=== PATIENT | male | born 1950 | race Caucasian/White ===

== ENCOUNTER 2017-07-06 11:29 | Emergency (ER) | payer OTHER ==
[2017-07-06] MEDS ORDERED: Tetan/Diph/Pertus SYR(Tdap)* 0.5 ML SYR(BOOSTRIX) use SYR IM ONE (12:14)
[2017-07-06] MEDS ORDERED: Lidocaine 2% 10 ML* VIAL INJ ONE (13:54)
[2017-07-06] MEDS ORDERED: Lidocaine 2% PF * 5 ML VIAL ONE (13:54)
--- NOTE | 2017-07-06 15:04 | ED ---
Lower Extremity - HPI Summary HPI Summary: Pt here w/ lac to Rt thigh while using a box sorter earlier today. Bleeding alot. BIBA. He has a dressing applied. Denies numbness, tingling, weakness into LE and no weakness, fatigue, dizziness, SOB, chest pain. Moving leg well - area of injury is sore focally but does not want pain meds at this time. Unsure of last tetanus vaccine. - History of Current Complaint Chief Complaint: EDLacSutureRecheck Stated Complaint: LEG LACERATION Time Seen by Provider: 07/06/17 11:44 Hx Obtained From: Patient Pain Intensity: 3 - Allergies/Home Medications Allergies/Adverse Reactions: Allergies Allergy/AdvReac Type Severity Reaction Status Date / Time Penicillins Allergy Severe Rash Verified 07/02/17 11:11 Levofloxacin [From Levaquin] Allergy tendonitis, Verified 07/02/17 11:11 severe muscle aches PMH/Surg Hx/FS Hx/Imm Hx Previously Healthy: Yes Endocrine/Hematology History: Denies: Hx Anticoagulant Therapy, Hx Blood Disorders, Hx Anemia, Hx Coagulopothy, Autoimmune Disease Cardiovascular History: Reports: Hx Hypertension Denies: Hx Pacemaker/ICD Respiratory History: Reports: Hx Chronic Obstructive Pulmonary Disease (COPD), Hx Sleep Apnea GI History: Reports: Hx Hiatal Hernia, Other GI Disorders - being worked up Denies: Hx Gastrointestinal Bleed, Hx Ulcer History: Denies: Hx Acute Renal Failure, Hx Chronic Renal Failure Musculoskeletal History: Reports: Hx Arthritis - rheumatoid arthritis, Hx Back Problems - takes morphine daily for chronic pain Sensory History: Denies: Hx Hearing Aid Neurological History: Reports: Other Neuro Impairments/Disorders - PAIN CLINIC INJECTIONS Psychiatric History: Reports: Hx Anxiety, Hx Depression, Hx Panic Disorder, Hx Substance Abuse - 30 years ago - Surgical History Surgery Procedure, Year, and Place: HIATAL HERNIA. RT FOOT SURGERY. FACIAL SURGERY. NOSE SURGERY. circumcision 2011, [facility] [place] - Immunization History Date of Tetanus Vaccine: unknown Date of Influenza Vaccine: UTD Immunizations Up to Date: Unable to Obtain/Confirm Infectious Disease History: No Infectious Disease History: Reports: Hx Hepatitis - Hep C Denies: Traveled Outside the [place] in Last 30 Days - Family History Known Family History: Positive: None - Social History Occupation: Retired Lives: With Family Alcohol Use: None Hx Substance Use: No Substance Use Type: Reports: None Substance Use Comment - Amount & Last Used: ms contin, morphine ir rx'd Hx Tobacco Use: Yes - not currently Smoking Status (MU): Former Smoker Type: Cigarettes Have You Smoked in the Last Year: No Review of Systems Constitutional: Negative Eyes: Negative ENT: Negative Cardiovascular: Negative Respiratory: Negative Gastrointestinal: Negative Positive: no symptoms reported Musculoskeletal: Negative Skin: Other - lac Neurological: Negative Psychological: Normal All Other Systems Reviewed And Are Negative: Yes Physical Exam Triage Information Reviewed: Yes Vital Signs On Initial Exam: Initial Vitals Temp Pulse Resp BP Pulse Ox 98.8 F 72 18 156/81 97 07/06/17 11:42 07/06/17 11:42 07/06/17 11:42 07/06/17 11:42 07/06/17 11:42 Vital Signs Reviewed: Yes Appearance: Positive: Well-Appearing, No Pain Distress, Well-Nourished Skin: Positive: Warm - eliptical lac over Rt anterior thigh - oozing blood w/o pressure at times - better after pressure dressing - clots are present within wound, subcutaneous tissue observed - no muscle injury observed - no vessels, nerves observed Head/Face: Positive: Normal Head/Face Inspection Eyes: Positive: EOMI ENT: Positive: Hearing grossly normal Respiratory/Lung Sounds: Positive: Breath Sounds Present Cardiovascular: Positive: Pulses are Symmetrical in both Upper and Lower Extremities. Negative: Leg Edema Left, Leg Edema Right Musculoskeletal: Positive: Normal, Strength/ROM Intact Neurological: Positive: Normal, Sensory/Motor Intact, Alert, Oriented to Person Place, Time, CN Intact II-III Psychiatric: Positive: Normal - [place] Coma Scale Coma Scale Total: 15 Procedures - Laceration/Wound Repair 1 Location: lower extremity - Rt thigh Description: Irregular - eliptical w/ tissue tension presenting as a nike swoop Anesthesia: Local, 2.0%, Lido Length, Depth and Shape: 4.25cm in length x 1.75 cm deep Betadine Prep?: Yes Irrigated w/ Saline (ccs): 250 Laceration/Wound Explored: clean Closure: Single Layer Suture Type: Nylon - 4-0 Number of Sutures: 11 - 3 horizontal mattress; 8 simple interrupted Layer Closure?: No - no muscle tissue to approximate, only subcut which doesn't hold suture Sterile Dressing Applied?: Yes - triple anbx + sterile gauze + coban - pt tolerated well Diagnostics - Vital Signs Vital Signs Temp Pulse Resp BP Pulse Ox 07/06/17 11:42 98.8 F 72 18 156/81 97 - Laboratory Lab Statement: Any lab studies that have been ordered have been reviewed, and results considered in the medical decision making process. Lower Extremity Course/Dx - Diagnoses Provider Diagnoses: Laceration of right thigh Discharge - Discharge Plan Condition: Stable Disposition: HOME Prescriptions: Ibuprofen TAB* [Motrin TAB* 600 MG] 600 mg PO Q6H PRN #20 tab PRN Reason: Pain Patient Education Materials: Care For Your Stitches (ED), Crutch Instructions ( ED), Laceration (ED) Referrals: Jaiden Branch MD [Primary Care Provider] - Additional Instructions: Keep dressing clean, dry and in place for 48 hours. After this time, you may remove dressing and gently wash daily with soap and water - rinse well and pat dry with clean cloth - reapply triple antibiotic ointment and gauze padding/ dressing with coban (stretchy, adherent, beige wrap). Once you are out of coban , you may start applying an SARAH wrap for your outer dressing but continue to place clean, fresh gauze with each dressing change. Do not bend, squat, kneel, walk vigorously, etc as you do not want to disrupt your sutures while tissue is healing. You have been provided with crutches to reduce muscle contraction with weight bearing on this leg. Use until wound heals. Follow-up with PCP in 10-14 days for wound check and suture removal. You may follow-up with PCP sooner if you have concerns about healing, infection, etc. In the meantime, rest, ice, elevate. You may take ibuprofen with food for pain (medication sent for pharmacy for you). You may also return to the ED if you develop swelling, redness, purulent drainage, streaking, fever or chills OR if the wound starts bleeding despite elevation and compression for 20 minutes, and icing.
[2017-07-06 15:10] VITALS: BP 146/78
== END 2017-07-06 15:09 | disposition home or self-care (01) ==
LOC: ED 11:29
DX: S71.111A Laceration without foreign body, right thigh, initial encounter (principal); W26.8XXA Contact with other sharp object(s), not elsewhere classified, initial encounter; Y92.9 Unspecified place or not applicable; J44.9 Chronic obstructive pulmonary disease, unspecified; I10 Essential (primary) hypertension; M06.9 Rheumatoid arthritis, unspecified; G47.30 Sleep apnea, unspecified; G89.29 Other chronic pain; Z87.891 Personal history of nicotine dependence
CPT/HCPCS: 12002; 90471; 90715; 99282

== ENCOUNTER 2018-03-20 09:44 | Emergency (ER) | payer MEDICARE, OTHER ==
[2018-03-20 10:18] VITALS: BP 158/86
[2018-03-20] MEDS ORDERED: Lidocaine 1%* 5 ML VIAL INJ ONE (11:52)
--- NOTE | 2018-03-20 12:12 | UC ---
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 - History Of Current Complaint Chief Complaint: UCLaceration Stated Complaint: FACIAL LACERATION Time Seen by Provider: 03/20/18 11:36 Hx Obtained From: Patient Laceration Location: Cheek - right Mechanism Of Injury: Blunt Trauma Onset/Duration: Sudden Onset Pain Intensity: 5 Pain Scale Used: 0-10 Numeric Aggravating Factors: Nothing - Allergies/Home Medications Allergies/Adverse Reactions: Allergies Allergy/AdvReac Type Severity Reaction Status Date / Time Penicillins Allergy Severe Rash Verified 03/20/18 10:18 levofloxacin [From Levaquin] AdvReac See Comment Verified 03/20/18 10:18 Home Medications: Home Medications Docusate CAP* [Colace Cap*] 100 mg PO DAILY 03/20/18 [History Confirmed 03/20/18 ] PMH/Surg Hx/FS Hx/Imm Hx Previously Healthy: No - chronic pain Psychological History: Depression, Post Traumatic Stress Disorder Other History Of: Negative For: Anticoagulant Therapy - Surgical History Surgical History: Yes Surgery Procedure, Year, and Place: HIATAL HERNIA. RT FOOT SURGERY. FACIAL SURGERY. NOSE SURGERY. circumcision 2011, [facility] [place] - Family History Known Family History: Positive: None - Social History Occupation: Disabled Lives: With Family Alcohol Use: Daily Substance Use Type: None Substance Use Comment - Amount & Last Used: ms contin, morphine ir rx'd Smoking Status (MU): Former Smoker Type: Cigarettes Have You Smoked in the Last Year: No When Did the Patient Quit Smoking/Using Tobacco: 1991 Review of Systems Constitutional: Negative Skin: Negative, Other - 6 cm laceration right cheek---does not include ear and is not throgh and through Eyes: Negative ENT: Negative Respiratory: Negative Cardiovascular: Negative Gastrointestinal: Negative Genitourinary: Negative Motor: Negative Neurovascular: Negative Musculoskeletal: Negative Neurological: Negative Psychological: Negative Is Patient Immunocompromised?: No All Other Systems Reviewed And Are Negative: Yes Physical Exam Triage Information Reviewed: Yes Appearance: Well-Appearing, No Pain Distress, Well-Nourished Vital Signs: Initial Vital Signs Temp 97.1 F 03/20/18 10:13 Pulse 89 03/20/18 10:13 Resp 18 03/20/18 10:13 BP 158/86 03/20/18 10:13 Pulse Ox 96 03/20/18 10:13 Vital Signs Reviewed: Yes Eye Exam: Normal Eyes: Positive: Conjunctiva Clear ENT Exam: Normal ENT: Positive: Normal ENT inspection, Hearing grossly normal, Pharynx normal. Negative: Trismus, Muffled voice, Hoarse voice Dental Exam: Normal Neck exam: Normal Neck: Positive: Supple Respiratory Exam: Normal Respiratory: Positive: Chest non-tender, No respiratory distress, No accessory muscle use Cardiovascular Exam: Normal Cardiovascular: Positive: RRR, Pulses Normal, Brisk Capillary Refill Musculoskeletal Exam: Normal Musculoskeletal: Positive: Strength Intact, ROM Intact, No Edema Neurological Exam: Normal Neurological: Positive: Alert, Muscle Tone Normal Psychological Exam: Normal Psychological: Positive: Normal Response To Family Skin Exam: Normal Skin: Positive: Other - 6 cm laceration right cheek does not include anuy portion of the ear, is not through and through Laceration Repair - Laceration Repair 1 Description: Linear Laceration Size After Repair: Length (cm) - 6, Width (mm) - 2, Depth (mm) - 3 Modified For Repair: No Type Injection: Local Anesthesia Used: 1.0% Lido Cleansing Completed Via Routine Prep: Yes Irrigation With Pressure Irrigation Device: Yes Closure Method: Single Layer Suture Of: Skin Suture Type: Nylon - 7 number 6.0 suture Laceration Course/Dx - Course/Dx Course Of Treatment: patient tolerated well-wound well approximated, reviewed d/ c instructions and wound care with patient - Differential Dx - Laceration/Wound Provider Diagnoses: 6 cm sutured laceration repair right cheek Discharge - Sign-Out/Discharge Documenting (check all that apply): Patient Departure - Discharge Plan Condition: Stable Disposition: HOME Patient Education Materials: Hypertension (ED), Facial Laceration (ED) Referrals: Jaiden Branch MD [Primary Care Provider] - 5 Days - Billing Disposition and Condition Condition: STABLE Disposition: Home
== END 2018-03-20 12:37 | disposition home or self-care (01) ==
LOC: UCEAST 09:44
DX: S01.411A Laceration without foreign body of right cheek and temporomandibular area, initial encounter (principal); W22.8XXA Striking against or struck by other objects, initial encounter; Y93.9 Activity, unspecified; Y92.9 Unspecified place or not applicable; Z88.1 Allergy status to other antibiotic agents; Z88.0 Allergy status to penicillin; Z87.891 Personal history of nicotine dependence
CPT/HCPCS: 12014; 99211; G0463

== ENCOUNTER 2018-10-18 20:20 | Emergency (ER) | payer OTHER ==
[2018-10-18] MEDS ORDERED: Ondansetron ODT TAB* 4 MG PO ONE (20:21)
[2018-10-18 20:30] VITALS: BP 202/93
[2018-10-18] MEDS ORDERED: NS 0.9% 1000 ML** 1,000 ML IV SCH (21:00)
--- NOTE | 2018-10-18 21:01 | UC ---
Abdominal Pain Male HPI - HPI Summary HPI Summary: pT PRESENTS WITH C/O severe abdominal pain, nausea, and concern for allergic reaction to medication given to him at [facility] office visit yesterday given via injection for his sinusitis. Pt unsure of name of medication and stated that he got an injection in his "ass". Pt was found on hands and knees wretching and c/ o abdominal pain and nausea but unable to vomit. pt denies any tongue or throat swelling, no difficulty breathing. Pt smells of alcohol. Pt states that abdominal pain, nausea began at noon yesterday. - History of Current Complaint Chief Complaint: UCAbdominalPain Stated Complaint: ALLERGIC REACTION Hx Obtained From: Patient Onset/Duration: Sudden Onset Timing: Constant Severity Initially: Severe Severity Currently: Severe Pain Intensity: 10 Location: Diffuse Radiates: No Character: Aching, Burning, Colicy, Dull, Sharp Aggravating Factor(s): Food, Movement, Deep Breaths Alleviating Factor(s): Nothing Associated Signs And Symptoms: Positive: Decreased Appetite, Nausea - Risk Factors Testicular Torsion: Negative Cardiac Risk Factors: Negative - Allergies/Home Medications Allergies/Adverse Reactions: Allergies Allergy/AdvReac Type Severity Reaction Status Date / Time Penicillins Allergy Severe Rash Verified 10/18/18 20:21 levofloxacin [From Levaquin] AdvReac See Comment Verified 10/18/18 20:21 Home Medications: Home Medications Cetirizine HCl [All Day Allergy] 10 mg PO DAILY 10/18/18 [History Confirmed ] Cholecalciferol (Vitamin D3) [Vitamin D3] 1,000 unit PO DAILY 10/18/18 [History Confirmed 10/18/18] Cyanocobalamin INJ * [Vitamin B12 INJ *] 1,000 mcg IM ONCE 10/18/18 [History Confirmed 10/18/18] Dextran 70/Hypromellose [Natures Tears 0.1-0.3 %] 1 ruby OP QID 10/18/18 [ History Confirmed 10/18/18] Lactulose 15 ml PO BID PRN 10/18/18 [History Confirmed 10/18/18] Lisinopril TAB* [Prinivil TAB*] 40 mg PO DAILY 10/18/18 [History Confirmed 10/18] Mirtazapine TAB* [Remeron TAB*] 15 mg PO BEDTIME 10/18/18 [History Confirmed ] PMH/Surg Hx/FS Hx/Imm Hx Previously Healthy: No Cardiovascular History: Cardiac Disease, Hypertension Other History Of: Negative For: Anticoagulant Therapy - Surgical History Surgical History: Yes Surgery Procedure, Year, and Place: HIATAL HERNIA. RT FOOT SURGERY. FACIAL SURGERY. NOSE SURGERY. circumcision [facility] [place] - Family History Known Family History: Positive: Cardiac Disease - Social History Occupation: Retired Lives: With Family Alcohol Use: None Substance Use Type: None Substance Use Comment - Amount & Last Used: ms contin, morphine ir rx'd Smoking Status (MU): Former Smoker Type: Cigarettes Have You Smoked in the Last Year: No When Did the Patient Quit Smoking/Using Tobacco: 1991 Review of Systems All Other Systems Reviewed And Are Negative: Yes Constitutional: Positive: Chills Skin: Positive: Negative Eyes: Positive: Negative ENT: Positive: Negative Respiratory: Positive: Negative Cardiovascular: Positive: Negative Gastrointestinal: Positive: Abdominal Pain, Nausea Genitourinary: Positive: Negative Motor: Positive: Negative Neurovascular: Positive: Negative Musculoskeletal: Positive: Negative Neurological: Positive: Negative Psychological: Positive: Negative Is Patient Immunocompromised?: No Physical Exam Triage Information Reviewed: Yes Appearance: Pain Distress Vital Signs: Initial Vital Signs Temp 99.0 F 10/18/18 20:28 Pulse 87 10/18/18 20:28 Resp 24 10/18/18 20:28 BP 202/93 10/18/18 20:28 Pulse Ox 97 10/18/18 20:28 Vital Signs Reviewed: Yes Eye Exam: Normal ENT Exam: Normal Dental Exam: Normal Neck exam: Normal Respiratory Exam: Normal Respiratory: Positive: Chest non-tender, Lungs clear, Normal breath sounds Cardiovascular Exam: Normal Abdomen Description: Positive: Other: - generalized tenderness Bowel Sounds: Positive: Present Musculoskeletal Exam: Normal Neurological Exam: Normal Psychological Exam: Normal Skin Exam: Normal Abd Pain Male Course/Dx - Course Course Of Treatment: Pt reports that he has not been able to eat today but he has been taking fluid by mouth. Pt's belly is firm and generalized tenderness. Pt was given 8 mg zofran with no improvement of nausea. Pt was recommended to go to [facility] ER and pt agreed and went via ambulance to [facility] [place] ER - Differential Dx/Clinical Impression Differential Diagnosis/HQI/PQRI: Pancreatitis, Other Provider Diagnosis: Abdominal pain in male, Nausea alone Discharge - Sign-Out/Discharge Documenting (check all that apply): Patient Departure All imaging exams completed and their final reports reviewed: No Studies - Discharge Plan Condition: Stable Disposition: TRANS HIGHER LVL OF CARE FAC Referrals: Jaiden Branch MD [Primary Care Provider] - - Billing Disposition and Condition Condition: STABLE Disposition: Trans Higher Lvl of Care Fac
== END 2018-10-18 21:10 | disposition short-term general hospital (02) ==
LOC: UCEAST 20:20
DX: R10.9 Unspecified abdominal pain (principal); R11.0 Nausea; I10 Essential (primary) hypertension; Z88.0 Allergy status to penicillin; Z88.1 Allergy status to other antibiotic agents; Z79.899 Other long term (current) drug therapy; Z87.891 Personal history of nicotine dependence
CPT/HCPCS: 99213; G0463

== ENCOUNTER 2018-10-18 21:21 | Emergency (ER) | payer OTHER ==
[2018-10-18] MEDS ORDERED: NS 0.9% 1000 ML** 2,000 ML IV ONE (21:28)
[2018-10-18] MEDS ORDERED: Morphine 4 MG/ML VIAL (1 ml) 4 MG/ML VIAL IV ONE (21:29)
[2018-10-18] MEDS ORDERED: Ondansetron INJ* 2 MG/ML VIAL IV ONE (21:29)
--- NOTE | 2018-10-18 21:30 | UC ---
Abdominal Pain Male HPI - History of Current Complaint Chief Complaint: EDAbdPain Stated Complaint: ALLERGIC REACTION PER EMS Time Seen by Provider: 10/18/18 21:27 - Allergies/Home Medications Allergies/Adverse Reactions: Allergies Allergy/AdvReac Type Severity Reaction Status Date / Time Penicillins Allergy Severe Rash Verified 10/18/18 20:21 levofloxacin [From Levaquin] AdvReac See Comment Verified 10/18/18 20:21 PMH/Surg Hx/FS Hx/Imm Hx Other History Of: Negative For: Anticoagulant Therapy - Surgical History Surgical History: Yes Surgery Procedure, Year, and Place: HIATAL HERNIA. RT FOOT SURGERY. FACIAL SURGERY. NOSE SURGERY. circumcision 2011, [facility] [place] - Family History Known Family History: Positive: None - Social History Alcohol Use: None Substance Use Type: None Substance Use Comment - Amount & Last Used: ms contin, morphine ir rx'd Smoking Status (MU): Former Smoker Type: Cigarettes Have You Smoked in the Last Year: No When Did the Patient Quit Smoking/Using Tobacco: 1991 Discharge - Discharge Plan Referrals: Jaiden Branch MD [Primary Care Provider] -
--- NOTE | 2018-10-18 21:54 | ED ---
Abdominal Pain/Male - HPI Summary HPI Summary: This patient is a 68 year old male brought in by EMS with a chief complaint of abdominal pain since 7 hours ago. The abdominal pain is constant and diffuse and he reports dry heaving. He was seen yesterday for a sinus infection and thinks it could be a reaction to the antibiotics he was given. He said he has had reactions to antibiotics before. He rates his pain 10/10 in severity. - History of Current Complaint Chief Complaint: EDAbdPain Stated Complaint: ALLERGIC REACTION PER EMS Time Seen by Provider: 10/18/18 21:27 Hx Obtained From: Patient Onset/Duration: Lasting Hours Timing: Constant Pain Intensity: 10 Pain Scale Used: 0-10 Numeric Location: Diffuse Radiates: No - Allergies/Home Medications Allergies/Adverse Reactions: Allergies Allergy/AdvReac Type Severity Reaction Status Date / Time Penicillins Allergy Severe Rash Verified 10/18/18 20:21 levofloxacin [From Levaquin] AdvReac See Comment Verified 10/18/18 20:21 PMH/Surg Hx/FS Hx/Imm Hx Endocrine/Hematology History: Denies: Hx Anticoagulant Therapy, Hx Blood Disorders, Hx Anemia Cardiovascular History: Reports: Hx Hypertension Denies: Hx Pacemaker/ICD Respiratory History: Reports: Hx Chronic Obstructive Pulmonary Disease (COPD), Hx Sleep Apnea GI History: Reports: Hx Hiatal Hernia, Other GI Disorders - being worked up Denies: Hx Gastrointestinal Bleed, Hx Ulcer History: Denies: Hx Acute Renal Failure, Hx Chronic Renal Failure Musculoskeletal History: Reports: Hx Arthritis - rheumatoid arthritis, Hx Back Problems - takes morphine daily for chronic pain Sensory History: Denies: Hx Hearing Aid Neurological History: Reports: Other Neuro Impairments/Disorders - PAIN CLINIC INJECTIONS Psychiatric History: Reports: Hx Anxiety, Hx Depression, Hx Panic Disorder, Hx Post Traumatic Stress Disorder - interferes with sleep, Hx Substance Abuse - 30 years ago - Surgical History Surgery Procedure, Year, and Place: HIATAL HERNIA. RT FOOT SURGERY. FACIAL SURGERY. [place] SURGERY. [place] [facility] [place] Immunization History Date of Tetanus Vaccine: unknown Date of Influenza Vaccine: UTD Infectious Disease History: No Infectious Disease History: Reports: Hx Hepatitis - Hep C Denies: Traveled Outside the [place] in Last 30 Days - Family History Known Family History: Negative: Cardiac Disease, Hypertension - Social History Alcohol Use: None Hx Substance Use: No Substance Use Type: Reports: None Substance Use Comment - Amount & Last Used: ms sue, morphine ir rx'd Hx Tobacco Use: Yes - not currently Smoking Status (MU): Former Smoker Type: Cigarettes Have You Smoked in the Last Year: No Review of Systems Negative: Fever Positive: Abdominal Pain, Other - Dry-heaving All Other Systems Reviewed And Are Negative: Yes Physical Exam - Summary Physical Exam Summary: Appearance: Well-appearing, Well-nourished, lying in bed comfortably Skin: Warm, dry, no obvious rash Eyes: sclera anicteric, no conjunctival pallor ENT: mucous membranes moist, pharynx appears normal Neck: Supple, nontender Respiratory: Clear to auscultation, no signs of respiratory distress Cardiovascular: Normal S1, S2. No murmurs. Normal distal pulses in tibial and radial bilaterally. Abdomen: Soft, nontender, normal active bowel sounds present. RUQ tenderness with some guarding. Musculoskeletal: Normal, Strength/ROM Intact Neurological: A&Ox3, awake and alert, mentation is normal, speech is fluent and appropriate Psychiatric: affect is normal, does not appear anxious or depressed Triage Information Reviewed: Yes Vital Signs On Initial Exam: Initial Vitals Temp Pulse Resp BP Pulse Ox 99.4 F 80 22 220/99 97 10/18/18 21:28 10/18/18 21:28 10/18/18 21:28 10/18/18 21:28 10/18/18 21:28 Vital Signs Reviewed: Yes Diagnostics - Vital Signs Vital Signs Temp Pulse Resp BP Pulse Ox 10/18/18 21:35 22 10/18/18 21:31 82 97 10/18/18 21:28 99.4 F 80 22 220/99 97 - Laboratory Result Diagrams: 10/18/18 21:35 10/18/18 21:35 Lab Statement: Any lab studies that have been ordered have been reviewed, and results considered in the medical decision making process. - CT Abd/Pel CT Interpretation Completed By: Radiologist Summary of CT Findings: 1. There is a mild prominence of the small bowel loops but no obvious transition point, possible mild ileus, less consistent with small bowel obstruction. 2. No other acute CT pathology. ED Provider has reviewed this report. - Ultrasound No standard instances Ultrasound Interpretation Completed By: Radiologist Summary of Ultrasound Findings: Gallbladder: No acute sonographic pathology. ED Provider has reviewed this report. - EKG 2141 Cardiac Rate: NL EKG Rhythm: Sinus Rhythm - 76 BPM Summary of EKG Findings: NSR at 76 BPM, P waves, QRS complex, and T waves are within normal limits, T waves and intervals are normal, no ischemic changes. This is a normal EKG Re-Evaluation - Re-Evaluation First Eval Re-Evaluation Time: 23:01 Change: Improved Comment: Pain has improved. Explained results and further CT testing. Abdominal Pain Male Course/Dx - Course Course Of Treatment: This patient is a 68 year old male brought in by EMS with a chief complaint of abdominal pain since 7 hours ago. Labs, Gallbladder U/S and Abd/Pel CT were unremarkable for GI problems. I discussed results with the patient and he reports feeling better. He is hemodynamically stable and safe for discharge. Strict return precautions given and he will otherwise follow up with his PCP. The patient agrees with this plan. - Diagnoses Provider Diagnoses: Abdominal pain Discharge - Sign-Out/Discharge Documenting (check all that apply): Patient Departure - Discharge Patient Received Moderate/Deep Sedation with Procedure: No - Discharge Plan Condition: Improved Disposition: HOME Patient Education Materials: Acute Abdominal Pain (ED) Referrals: Jaiden Branch MD [Primary Care Provider] - 3 Days Additional Instructions: The exact cause of your pain today remains unclear, but the US and CT scan did not show any significant abnormalities. If it comes back as severe as it was tonight we should see you back here. - Billing Disposition and Condition Condition: IMPROVED Disposition: Home - Attestation Statements Document Initiated by Theodore: Yes Documenting Scribe: Chau Archer Provider For Whom Theodore is Documenting (Include Credential): Mason rFaga MD Scribe Attestation: Chau Clement, scribed for Mason Fraga MD on 10/19/18 at 2020. Scribe Documentation Reviewed: Yes Provider Attestation: The documentation as recorded by the Chau mchugh accurately reflects the service I personally performed and the decisions made by me, Mason Fraga MD Status of Scribe Document: Viewed
[2018-10-18 21:56] LABS: ABS Basophils 0 10^3/ul (0-0.2); ABS Eosinophils 0.1 10^3/ul (0-0.6); ABS Lymphocytes 0.2 10^3/ul (1.0-4.8); ABS Monocytes 0.4 10^3/ul (0-0.8); ABS Neutrophils 4.6 10^3/ul (1.5-7.7); ABS Nucleated RBC 0 10^3/ul; Eosinophil % 1.5 %; Hematocrit 41 % (36-46); Hemoglobin 14.3 g/dL (14.0-18.0); Lymphocyte % 4.6 %; Mean Corpuscular HGB Conc 35 g/dL (31-36); Mean Corpuscular Hemoglobin 31 pg (27-31); Mean Corpuscular Volume 90 fL (80-94); Mean Platelet Volume 9.5 fL (7.4-10.4); Nucleated Red Blood Cells % 0.1; Platelet Count 157 10^3/uL (150-450); Red Blood Count 4.56 10^6 /uL (4.18-5.48); Red Cell Distribution Width 13 % (10.5-15); White Blood Count 5.3 10^3/uL (3.5-10.8)
[2018-10-18 21:59] LABS: Albumin 4.4 g/dL (3.2-5.2); Albumin/Globulin Ratio 1.5 (1-3); BUN/Creatinine Ratio 13.8 (8-20); EGFR African American 96.6 (>60); EGFR Non-African American 79.8 (>60); Globulin 2.9 g/dL (2-4); Potassium 4.1 mmol/L (3.5-5.0); Total Bilirubin 0.9 mg/dL (0.2-1.0); Total Protein 7.3 g/dL (6.4-8.9)
[2018-10-18] MEDS ORDERED: HYDROmorphone INJ1* 1 MG/ML SYRINGE IV ONE (22:00)
[2018-10-18] MEDS ORDERED: Iohexol 300* (CONTRAST) 10 ML SDV IV ONE (23:04)
[2018-10-19 00:21] LABS: Urine Appearance Cloudy; Urine Bacteria Absent (Absent); Urine Bilirubin Negative (Negative); Urine Blood Negative (Negative); Urine Color Yellow; Urine Glucose Negative (Negative); Urine Ketones 2+ (Negative); Urine Nitrite Negative (Negative); Urine Protein 1+(30 mg/dL) (Negative); Urine Red Blood Cell Absent (Absent); Urine Specific Gravity 1.021 (1.010-1.030); Urine Urobilinogen Negative (Negative); Urine White Blood Cell Trace(0-5/hpf) (Absent)
[2018-10-19 02:01] VITALS: BP 173/82
== END 2018-10-19 02:02 | disposition home or self-care (01) ==
LOC: ED 21:21
DX: R10.11 Right upper quadrant pain (principal); R11.2 Nausea with vomiting, unspecified; I10 Essential (primary) hypertension; Z88.1 Allergy status to other antibiotic agents; Z88.0 Allergy status to penicillin; Z87.891 Personal history of nicotine dependence
CPT/HCPCS: 36415; 74177; 76705; 80053; 81003; 81015; 83690; 85025; 87086; 93005; 96361; 96374; 96375; 99284; J1170; J2270; J2405; Q9967

== ENCOUNTER 2018-10-22 09:49 | Emergency (ER) | payer OTHER ==
--- NOTE | 2018-10-22 10:20 | ED ---
Respiratory - HPI Summary HPI Summary: A 68 y/o M, with PMHx: COPD and who was [facility], presents to ED with c/o worsening dyspnea onset three weeks ago and worsening yesterday. He was given ABX 4 days ago at the [place] and he had a bad reaction that caused abd pain. He [place] [facility] [place] and was released 10/19. His [facility] doctor told him he has thrush. Pt is on steroids, he also took Robitussin this AM. Associated sx: cough, sore throat, tongue pain, abd pain, dry heaves. He's been forgetting to take his nebulizers. Former smoker, he quit 26 years ago. Vitals at bedside: HR: 210/123. He did take his Lisinopril today. - History of Current Complaint Chief Complaint: EDUpperRespComplaint Stated Complaint: SOB PER PT Time Seen by Provider: 10/22/18 10:11 Hx Obtained From: Patient Onset/Duration: Gradual Onset, Lasting Days - worsened yesterday, Still Present Timing: Constant Initial Severity: Moderate Current Severity: Mild Pain Intensity: 2 Character: Cough (Productive), Dyspnea at Rest Aggravating Factor(s): Exertion Alleviating Factor(s): Nothing Associated Signs and Symptoms: Dyspnea - Allergy/Home Medications Allergies/Adverse Reactions: Allergies Allergy/AdvReac Type Severity Reaction Status Date / Time Penicillins Allergy Severe Rash Verified 10/18/18 20:21 levofloxacin [From Levaquin] AdvReac See Comment Verified 10/18/18 20:21 Home Medications: Home Medications Cetirizine* [ZyrTEC 10 MG TAB*] 10 mg PO DAILY 10/22/18 [History Confirmed 10/22] Clindamycin Cap(NF) [Clindamycin Cap 300 mg Cap(NF)] 300 mg PO QID 10/22/18 [ History Confirmed 10/22/18] Lactulose* 15 ml PO BID 10/22/18 [History Confirmed 10/22/18] Lisinopril TAB* [Prinivil TAB*] 40 mg PO DAILY 10/22/18 [History Confirmed 10/22] Morphine Sulfate 15 mg PO BID PRN 10/22/18 [History Confirmed 10/22/18] Morphine Sulfate 30 mg PO BID 10/22/18 [History Confirmed 10/22/18] PMH/Surg Hx/FS Hx/Imm Hx Previously Healthy: No Endocrine/Hematology History: Denies: Hx Anticoagulant Therapy, Hx Blood Disorders, Hx Anemia Cardiovascular History: Reports: Hx Hypertension Denies: Hx Pacemaker/ICD Respiratory History: Reports: Hx Chronic Obstructive Pulmonary Disease (COPD), Hx Sleep Apnea GI History: Reports: Hx Hiatal Hernia, Other GI Disorders - being worked up Denies: Hx Gastrointestinal Bleed, Hx Ulcer History: Denies: Hx Acute Renal Failure, Hx Chronic Renal Failure Musculoskeletal History: Reports: Hx Arthritis - rheumatoid arthritis, Hx Back Problems - takes morphine daily for chronic pain Sensory History: Denies: Hx Hearing Aid Neurological History: Reports: Other Neuro Impairments/Disorders - PAIN CLINIC INJECTIONS Psychiatric History: Reports: Hx Anxiety, Hx Depression, Hx Panic Disorder, Hx Post Traumatic Stress Disorder - interferes with sleep, Hx Substance Abuse - 30 years ago - Surgical History Surgery Procedure, Year, and Place: HIATAL HERNIA. RT FOOT SURGERY. FACIAL SURGERY. NOSE SURGERY. [place] [facility] - Immunization History Date of Tetanus Vaccine: unknown Date of Influenza Vaccine: 04/2018 Immunizations Up to Date: Yes Infectious Disease History: No Infectious Disease History: Reports: Hx Hepatitis - Hep C Denies: Traveled Outside the [place] in Last 30 Days - Family History Known Family History: Negative: Cardiac Disease, Hypertension - Social History Occupation: Retired Lives: Alone Alcohol Use: None Hx Substance Use: No Substance Use Type: Reports: None Substance Use Comment - Amount & Last Used: ms contin, morphine ir rx'd Hx Tobacco Use: Yes - not currently Smoking Status (MU): Former Smoker Type: Cigarettes Have You Smoked in the Last Year: No Review of Systems Negative: Fever Positive: Sore Throat, Other - pos: tongue pain Positive: Cough, Other - pos: dyspnea Positive: Abdominal Pain, Other - pos: dry heaves All Other Systems Reviewed And Are Negative: Yes Physical Exam - Summary Physical Exam Summary: Constitutional: Well-developed, Well-nourished, Alert. (-) Distressed Skin: Warm, Dry HENT: Normocephalic; Atraumatic Eyes: Conjunctiva normal Neck: Musculoskeletal ROM normal neck. (-) JVD, (-) Stridor, (-) Tracheal deviation Cardio: Rhythm regular, rate normal, Heart sounds normal; Intact distal pulses; The pedal pulses are 2+ and symmetric. Radial pulses are 2+ and symmetric. (-) Murmur Pulmonary/Chest wall: Barrel chested. Diminished breath sounds bilaterally, especially in posterior lung field. (-) Wheezes, (-) Crackles. Abd: Soft, Suprapubic tenderness, (-) Distension, (-) Guarding, (-) Rebound Musculoskeletal: (-) Edema Lymph: (-) Cervical adenopathy Neuro: Alert, Oriented x3 Psych: Mood and affect Normal Triage Information Reviewed: Yes Vital Signs On Initial Exam: Initial Vitals Temp Pulse Resp BP Pulse Ox 98.6 F 75 20 200/121 95 10/22/18 09:52 10/22/18 09:52 10/22/18 09:52 10/22/18 09:52 10/22/18 09:52 Vital Signs Reviewed: Yes Diagnostics - Vital Signs Vital Signs Temp Pulse Resp BP Pulse Ox 10/22/18 09:52 98.6 F 75 20 200/121 95 - Laboratory Result Diagrams: 10/22/18 10:34 10/22/18 10:34 Lab Statement: Any lab studies that have been ordered have been reviewed, and results considered in the medical decision making process. - Radiology CXR Radiology Interpretation Completed By: Radiologist Summary of Radiographic Findings: IMPRESSION: NO ACTIVE CARDIOPULMONARY DISEASE IS NOTED. RIGHT BASE ATELECTASIS IS NOTED. ED provider has reviewed this report. - EKG 1033 Cardiac Rate: NL - 70bpm EKG Rhythm: Sinus Rhythm ST Segment: Normal Ectopy: None Summary of EKG Findings: Normal sinus rhythm at 70 bpm, normal [place], normal QRS, normal QTc, normal axis, normal ST, normal T-waves, overall non-specific EKG. Re-Evaluation - Re-Evaluation 1 Re-Evaluation Time: 14:15 Change: Improved Comment: Discussing results with pt. Pt is feeling better. Disposition - Course Course Of Treatment: Pt is a 68 y/o M presenting with dyspnea onset three weeks ago and worsening yesterday. [facility] and he had a bad reaction, for which he came to [facility] on 10/18 and was released 10/19. Pt took Robitussin, Lisinopril this AM. Pt is also on steroids. Associated sx: cough, sore throat, tongue pain, abd pain, dry heaves. He's been forgetting to take his nebulizers. Former smoker, quit 26 years ago. PE found the patient is barrel-chested. He has diminished breath sounds bilaterally, especially in posterior lung field, but is without wheezes and crackles. He has suprapubic abd tenderness. EKG shows NSR at 70 bpm, overall a non-specific EKG. CXR shows "NO ACTIVE CARDIOPULMONARY DISEASE IS NOTED. RIGHT BASE ATELECTASIS IS NOTED." Lab work is without significant abnormality except: abs lymphs: 0.3; glucose: 121; BNP: 240. Rapid flu A is positive. Pt given duoneb, clonidine, solu- medrol in ED. Pt is improved upon re-eval, will D/C home with Tamiflu. - Diagnoses Provider Diagnoses: Influenza, Oral candidiasis Discharge - Sign-Out/Discharge Documenting (check all that apply): Patient Departure - D/C Patient Received Moderate/Deep Sedation with Procedure: No - Discharge Plan Prescriptions: Nystatin SUSPENSION ORAL SYR* 500,000 units PO QID #150 udc Oseltamivir CAP* [Tamiflu CAP*] 75 mg PO BID #9 cap Patient Education Materials: Oral Candidiasis (ED), Influenza (ED) Print Language: ARGENTINE Referrals: Jaiden Branch MD [Primary Care Provider] - - Attestation Statements Document Initiated by Scribe: Yes Documenting Scribe: Alis Mancera Provider For Whom Scribe is Documenting (Include Credential): Dr. Vivienne Stapleton Scribe Attestation: I, Alis Mancera, bernaibed for Dr. Vivienne Stapleton on 10/22/18 at 1432. Status of Scribe Document: Ready
[2018-10-22] MEDS ORDERED: Albuterol/Ipratropium NEB.SOL* Albuterol 2.5 MG/Ipratropium 0.5 MG 3 ML INH ONE (10:22)
[2018-10-22] MEDS ORDERED: methylPREDNISolone 125 MG* 2 ML VIAL IV ONE (10:22)
[2018-10-22] MEDS ORDERED: cloNIDine TAB* 0.1 MG PO ONE (10:24)
[2018-10-22 10:47] LABS: ABS Basophils 0 10^3/ul (0-0.2); ABS Eosinophils 0 10^3/ul (0-0.6); ABS Lymphocytes 0.3 10^3/ul (1.0-4.8); ABS Monocytes 0.6 10^3/ul (0-0.8); ABS Neutrophils 6.5 10^3/ul (1.5-7.7); ABS Nucleated RBC 0.1 10^3/ul; Eosinophil % 0 %; Hematocrit 42 % (36-46); Hemoglobin 14.4 g/dL (14.0-18.0); Lymphocyte % 4.1 %; Mean Corpuscular HGB Conc 34 g/dL (31-36); Mean Corpuscular Hemoglobin 31 pg (27-31); Mean Corpuscular Volume 90 fL (80-94); Mean Platelet Volume 8.9 fL (7.4-10.4); Nucleated Red Blood Cells % 0.8; Platelet Count 198 10^3/uL (150-450); Red Blood Count 4.66 10^6 /uL (4.18-5.48); Red Cell Distribution Width 13 % (10.5-15); White Blood Count 7.3 10^3/uL (3.5-10.8)
[2018-10-22 11:08] LABS: Troponin I 0.03 ng/mL (<0.04)
[2018-10-22 11:21] LABS: Albumin 4.5 g/dL (3.2-5.2); Albumin/Globulin Ratio 1.6 (1-3); BUN/Creatinine Ratio 16.9 (8-20); Calcium 9.4 mg/dL (8.6-10.3); EGFR African American 111.5 (>60); EGFR Non-African American 92.1 (>60); Globulin 2.8 g/dL (2-4); Potassium 3.6 mmol/L (3.5-5.0); Total Bilirubin 0.5 mg/dL (0.2-1.0); Total Protein 7.3 g/dL (6.4-8.9)
[2018-10-22 11:26] LABS: Influenza A Molecular POSITIVE (Negative)
[2018-10-22] MEDS ORDERED: Nystatin SUSPENSION* 100000 UNITS/ML 5 ML UDC PO ONE (12:26)
[2018-10-22] MEDS ORDERED: Oseltamivir CAP* 75 MG CAP PO ONE (14:08)
[2018-10-22 14:54] VITALS: BP 180/100
== END 2018-10-22 14:49 | disposition home or self-care (01) ==
LOC: ED 09:49
DX: J11.1 Influenza due to unidentified influenza virus with other respiratory manifestations (principal); B37.0 Candidal stomatitis; R06.00 Dyspnea, unspecified; Z87.891 Personal history of nicotine dependence; R10.9 Unspecified abdominal pain; J44.9 Chronic obstructive pulmonary disease, unspecified; I10 Essential (primary) hypertension; Z87.19 Personal history of other diseases of the digestive system
CPT/HCPCS: 36415; 71045; 80053; 83605; 83880; 84484; 85025; 87040; 93005; 96374; 99283; A9270-GY; J2930

== ENCOUNTER 2018-10-23 16:05 | Observation (INO) | payer OTHER ==
[2018-10-23] MEDS ORDERED: Ketorolac INJ* 15 MG/ML 1 ML VIAL IV PUSH ONE (19:52)
[2018-10-23] MEDS ORDERED: Acetaminophen TAB* 325 MG PO ONE (19:52)
[2018-10-23] MEDS ORDERED: hydrALAZINE IV* 20 MG/ML VIAL IV SLOW PU ONE ×2 (19:52→21:46)
[2018-10-23] MEDS ORDERED: Albuterol/Ipratropium NEB.SOL* Albuterol 2.5 MG/Ipratropium 0.5 MG 3 ML INH ONE (19:52)
--- NOTE | 2018-10-23 19:52 | ED ---
Complex/Multi-Sys Presentation - HPI Summary HPI Summary: This patient is a 68 year old M presenting to ED with a chief complaint of HTN and difficulty breathing since a few days ago. The patient was seen in the ED yesterday and was dx with the flu. The patient took Tamiflu and his HTN medications today at 0700 as well as morphine for his back pain. He reports he has been having HTN in the past few days and it has not gone down with his medications The patient rates the pain 5/10 in severity. Symptoms aggravated by nothing. Symptoms alleviated by nothing. PMHx of COPD. Patient is a former smoker. Patient has an inhaler and is not on O2 at home. - History Of Current Complaint Chief Complaint: EDHypertension Time Seen by Provider: 10/23/18 19:20 Hx Obtained From: Patient Onset/Duration: Sudden Onset, Lasting Days, Still Present Timing: Constant, Days Severity Currently: None Aggravating Factor(s): nothing Alleviating Factor(s): nothing Associated Signs And Symptoms: Positive: Back Pain - baseline, Other - HTN, difficulty breathing - Allergies/Home Medications Allergies/Adverse Reactions: Allergies Allergy/AdvReac Type Severity Reaction Status Date / Time Penicillins Allergy Severe Rash Verified 10/18/18 20:21 levofloxacin [From Levaquin] AdvReac See Comment Verified 10/18/18 20:21 PMH/Surg Hx/FS Hx/Imm Hx Endocrine/Hematology History: Denies: Hx Anticoagulant Therapy, Hx Blood Disorders, Hx Anemia Cardiovascular History: Reports: Hx Hypertension Denies: Hx Pacemaker/ICD Respiratory History: Reports: Hx Chronic Obstructive Pulmonary Disease (COPD), Hx Sleep Apnea GI History: Reports: Hx Hiatal Hernia, Other GI Disorders - being worked up Denies: Hx Gastrointestinal Bleed, Hx Ulcer History: Denies: Hx Acute Renal Failure, Hx Chronic Renal Failure Musculoskeletal History: Reports: Hx Arthritis - rheumatoid arthritis, Hx Back Problems - takes morphine daily for chronic pain Sensory History: Denies: Hx Hearing Aid Neurological History: Reports: Other Neuro Impairments/Disorders - PAIN CLINIC INJECTIONS Psychiatric History: Reports: Hx Anxiety, Hx Depression, Hx Panic Disorder, Hx Post Traumatic Stress Disorder - interferes with sleep, Hx Substance Abuse - 30 years ago - Surgical History Surgery Procedure, Year, and Place: HIATAL HERNIA. RT FOOT SURGERY. FACIAL SURGERY. NOSE SURGERY. [place] [facility] [place] - Immunization History Date of Tetanus Vaccine: unknown Date of Influenza Vaccine: 04/2018 Infectious Disease History: No Infectious Disease History: Reports: Hx Hepatitis - Hep C Denies: Traveled Outside the US in Last 30 Days - Family History Known Family History: Negative: Cardiac Disease, Hypertension - Social History Alcohol Use: None Hx Substance Use: No Substance Use Type: Reports: None Substance Use Comment - Amount & Last Used: ms contin, morphine ir rx'd Hx Tobacco Use: Yes - not currently Smoking Status (MU): Former Smoker Type: Cigarettes Have You Smoked in the Last Year: No Review of Systems Positive: Other - positive for the flu, dx yesterday in the ED Positive: Other - HTN Positive: Other - difficulty breathing Positive: Other - back pain at baseline All Other Systems Reviewed And Are Negative: Yes Physical Exam - Summary Physical Exam Summary: VITAL SIGNS: Reviewed. GENERAL: Patient is a well-developed and nourished MALE who is lying comfortable in the stretcher. Patient is not in any acute respiratory distress. HEAD AND FACE: No signs of trauma. No ecchymosis, hematomas or skull depressions. No sinus tenderness. EYES: PERRLA, EOMI x 2, No injected conjunctiva, no nystagmus. EARS: Hearing grossly intact. Ear canals and tympanic membranes are within normal limits. MOUTH: Oropharynx within normal limits. NECK: Supple, trachea is midline, no adenopathy, no JVD, no carotid bruit, no c- spine tenderness, neck with full ROM. CHEST: Symmetric, no tenderness at palpation LUNGS: Clear to auscultation bilaterally. No wheezing or crackles. Decreased breath sounds bilaterally. CVS: Regular rate and rhythm, S1 and S2 present, no murmurs or gallops appreciated. ABDOMEN: Soft, non-tender. No signs of distention. No rebound no guarding, and no masses palpated. Bowel sounds are normal. EXTREMITIES: FROM in all major joints, no edema, no cyanosis or clubbing. NEURO: Alert and oriented x 3. No acute neurological deficits. Speech is normal and follows commands. SKIN: Dry and warm Triage Information Reviewed: Yes Vital Signs On Initial Exam: Initial Vitals Temp Pulse Resp BP Pulse Ox 98.5 F 76 16 212/110 94 10/23/18 16:14 10/23/18 16:14 10/23/18 16:14 10/23/18 16:14 10/23/18 16:14 Vital Signs Reviewed: Yes Diagnostics - Vital Signs Vital Signs Temp Pulse Resp BP Pulse Ox 10/23/18 19:30 64 20 191/96 94 10/23/18 19:02 68 22 213/109 96 10/23/18 19:00 68 17 217/109 94 10/23/18 18:54 63 16 206/99 95 10/23/18 18:52 42 10/23/18 16:14 98.5 F 76 16 212/110 94 - Laboratory Result Diagrams: 10/23/18 21:14 10/23/18 21:14 Lab Statement: Any lab studies that have been ordered have been reviewed, and results considered in the medical decision making process. - Radiology CXR Radiology Interpretation Completed By: ED Physician Summary of Radiographic Findings: COPD and no acute processes. Pending radiologist official report. - CT CTA chest/thorax CT Interpretation Completed By: Radiologist Summary of CT Findings: 1. No CTA evidence of pulmonary embolism. 2. Diffuse centrilobular emphysematous changes. 3. Several small bilateral pulmonary nodules, some stable and others new, largest 1.2 cm nodular-like lesion with adjacent scarring in the right middle lobe. For patients at low risk (minimal or absent history of smoking and of other known risk factors), recommend CT at 3-6 months, then consider CT at 18-24 months. For patients at high risk ( history of smoking or of other known risk factors), recommend CT at 3-6 months , then CT at 18-24 months. (Haroldo et al., Fleischner Society, 2017) 4. Other chronic findings, as above. Dr. Patton has reviewed this radiology report. Complex Multi-Symp Course/Dx Assessment/Plan: This patient is a 68 year old M presenting to ED with a chief complaint of HTN and difficulty breathing since a few days ago. In the ED course , the patient was given Tylenol, Ventolin, duoneb, Apresoline, Toradol, Zofran, rocephin, potassium chlrodie, and solu-medrol. CXR, per ED physician, reveals COPD and no acute processes. Chest/thorax CTA reveals 1. No CTA evidence of pulmonary embolism. 2. Diffuse centrilobular emphysematous changes. 3. Several small bilateral pulmonary nodules, some stable and others new, largest 1.2 cm nodular-like lesion with adjacent scarring in the right middle lobe. For patients at low risk (minimal or absent history of smoking and of other known risk factors), recommend CT at 3-6 months, then consider CT at 18-24 months. For patients at high risk (history of smoking or of other known risk factors), recommend CT at 3-6 months, then CT at 18-24 months. (Haroldo et al., Fleischner Society, 2017) 4. Other chronic findings, as above. Spoke to Dr. Levy about the pt's condition at 0103 who will be accepting the pt to [facility] with dx including COPD and influenza. - Diagnoses Provider Diagnoses: COPD (chronic obstructive pulmonary disease), Influenza, HTN (hypertension) Discharge - Sign-Out/Discharge Documenting (check all that apply): Patient Departure Patient Received Moderate/Deep Sedation with Procedure: No - Discharge Plan Disposition: ADMITTED TO [facility] Referrals: Jaiden Branch MD [Primary Care Provider] - - Attestation Statements Document Initiated by Scribe: Yes Documenting Scribe: Eduardo Powers Provider For Whom Scribe is Documenting (Include Credential): Angelo Patton MD Scribe Attestation: I, Eduardo Powers, scribed for Angelo Patton MD on 10/24/18 at 0107. Status of Scribe Document: Ready Consult Consult: 0103 - Spoke with Dr. Levy about the pt's present condition who will be the accepting physician to [facility].
[2018-10-23] MEDS ORDERED: methylPREDNISolone 125 MG* 2 ML VIAL IV ONE (19:53)
[2018-10-23] MEDS: Albuterol 2.5 MG/3 ML NEB.SOL* (0.083%) INH SCH ×4 (20:58→23:23)
[2018-10-23 21:22] LABS: Hematocrit 41 % (36-46); Hemoglobin 14.2 g/dL (14.0-18.0); Mean Corpuscular HGB Conc 34 g/dL (31-36); Mean Corpuscular Hemoglobin 31 pg (27-31); Mean Corpuscular Volume 90 fL (80-94); Mean Platelet Volume 9.3 fL (7.4-10.4); Platelet Count 174 10^3/uL (150-450); Red Blood Count 4.56 10^6 /uL (4.18-5.48); Red Cell Distribution Width 14 % (10.5-15); White Blood Count 7.3 10^3/uL (3.5-10.8)
[2018-10-23 21:32] LABS: Activated Partial Thrombo Time 24.5 seconds (26.0-36.3); INR 0.98 (0.77-1.02)
[2018-10-23 21:38] LABS: Albumin/Globulin Ratio 1.5 (1-3); BUN/Creatinine Ratio 16.3 (8-20); C Reactive Protein 2.25 mg/L (<8.01); Calcium 8.6 mg/dL (8.6-10.3); EGFR African American 116.3 (>60); EGFR Non-African American 96.1 (>60); Globulin 2.7 g/dL (2-4); Potassium 3.4 mmol/L (3.5-5.0); Total Bilirubin 0.4 mg/dL (0.2-1.0); Total Protein 6.7 g/dL (6.4-8.9)
[2018-10-23] MEDS ORDERED: Ondansetron INJ* 2 MG/ML VIAL IV ONE (21:46)
[2018-10-23 21:53] LABS: ABS Basophils 0 10^3/ul (0-0.2); ABS Eosinophils 0 10^3/ul (0-0.6); ABS Lymphocytes 1.8 10^3/ul (1.0-4.8); ABS Monocytes 0.7 10^3/ul (0-0.8); ABS Neutrophils 4.7 10^3/ul (1.5-7.7); ABS Nucleated RBC 0 10^3/ul; Eosinophil % 0.2 %; Lymphocyte % 24.7 %; Nucleated Red Blood Cells % 0.4
[2018-10-23] MEDS ORDERED: Magnesium Sulfate 2 GM IV* 2 GM/50 ML BAG IVPB ONE (22:30)
[2018-10-23] MEDS ORDERED: Potassium Chlor TAB* 20 MEQ TAB.ER PO ONE (23:13)
[2018-10-23] MEDS ORDERED: Iohexol 350* (CONTRAST) 500 ML MDV IV ONE (23:27)
[2018-10-24] MEDS ORDERED: ED cefTRIAXone 1 GM/50 ML 1 GM/50 ML PREMIX.SET IVPB ONE (00:12)
[2018-10-24] MEDS ORDERED: cefTRIAXone(*) 1 GM ADVAN/BAG ONE (01:12)
[2018-10-24] MEDS ORDERED: Ondansetron INJ* 2 MG/ML VIAL IV PRN (01:53)
[2018-10-24] MEDS ORDERED: Al Hydrox/Mg Hydrox/Simet LIQ* 30 ML UDC PO PRN (01:53)
[2018-10-24] MEDS ORDERED: Acetaminophen TAB* 325 MG PO PRN (01:53)
[2018-10-24] MEDS ORDERED: Senna TAB PO PRN (01:53)
[2018-10-24] MEDS ORDERED: Docusate CAP* 100 MG PO PRN (01:53)
[2018-10-24] MEDS ORDERED: Morphine ORAL.SOLN 10 mg* 2 MG/ML UDC 5 ml PO PRN (01:55)
[2018-10-24] MEDS ORDERED: Albuterol 2.5 MG/3 ML NEB.SOL* (0.083%) INH PRN (01:58)
[2018-10-24] MEDS ORDERED: Albuterol/Ipratropium NEB.SOL* Albuterol 2.5 MG/Ipratropium 0.5 MG 3 ML INH PRN (01:58)
[2018-10-24] MEDS ORDERED: NS 0.9% 1000 ML** 1,000 ML IV SCH (02:00)
--- NOTE | 2018-10-24 04:14 | HP ---
CC: Dr. Branch; [place] in [place] * HISTORY AND PHYSICAL: DATE OF ADMISSION: 10/24/18 TIME OF EVALUATION: 0200. PRIMARY CARE PHYSICIAN: Dr. Branch. CHIEF COMPLAINT: Shortness of breath and elevated blood pressure. HISTORY OF PRESENT ILLNESS: This is a 68-year-old male with a past medical history of COPD on room air who was just diagnosed with influenza on 10/22/18 here in the emergency room, returns for persistent shortness of breath and elevated blood pressure. The patient states he has been sick for about the past 3 weeks with worsening dyspnea on exertion and shortness of breath and cough. He was initially diagnosed with sinusitis and was taking clindamycin. He continued his course of clindamycin. He was concerned for a fever, shortness of breath and respiratory symptoms and he came to the emergency room on 10/22/18. At that time, he was diagnosed with influenza and started on Tamiflu. He was also noted to have oral thrush at that time. He went home, he is concerned about his shortness of breath and his blood pressure ranging greater than 200. He continues to have a dry cough. No chest pain or pressure. He did have some nausea in the emergency room, no vomiting or diarrhea, no abdominal pain, no urinary symptoms. 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 Otherwise, review of systems is negative. In the emergency room, the patient had labs and imaging. He was given potassium chloride, Zofran, Solu-Medrol, magnesium sulfate, hydralazine 10 mg, Toradol, DuoNeb, albuterol and Tylenol and referred to the hospitalist service for further evaluation. PAST MEDICAL HISTORY: 1. COPD on room air. 2. History of obstructive sleep apnea, cannot tolerate CPAP machine due to his PTSD. 3. History of hypertension. 4. History of PTSD. 5. History of degenerative disk disease, followed by Dr. Baker. 6. Chronic pain. 7. Constipation. 8. Sleep disorder, unspecified. MEDICATIONS: He was started on: 1. Tamiflu 75 mg p.o. b.i.d. 2. Nystatin suspension 500,000 units p.o. q.i.d. 3. Morphine sulfate 30 mg p.o. b.i.d. and 15 mg b.i.d. as needed. 4. Provigil 300 mg p.o. t.i.d. 5. Remeron 15 mg p.o. at bedtime. 6. Lisinopril 40 mg daily. 7. Lactulose 15 mL p.o. b.i.d. 8. Colace 200 mg p.o. b.i.d. 9. Nature's Tears one drop both eyes q.i.d. 10. Cyanocobalamin injection monthly. 11. Vitamin D3 1000 units daily. 12. Zyrtec 10 mg daily. 13. Prednisone one tab p.o. t.i.d., started on 10/23/18. ALLERGIES: PENICILLIN and LEVAQUIN. FAMILY HISTORY: Reviewed and noncontributory. SOCIAL HISTORY: The patient lives alone. He is independent with his ADLs. He is a [employer] . He quit smoking around 26 years ago, at that time, he was smoking 2 to 3 packs per day. He also had a significant alcohol abuse history and amphetamine abuse history, all stopped more than 20 years ago. His daughter, Ana Dickerson, is his healthcare proxy. Code status is full code. REVIEW OF SYSTEMS: A 14-point review of systems as mentioned in the HPI; otherwise, negative. PHYSICAL EXAMINATION GENERAL: In no acute distress, resting comfortably and does have intermittent conversational dyspnea. VITAL SIGNS: T-max is 98.5, pulse rate is 89, respiratory rate is 19, oxygen saturation 93% on 2 L, blood pressure 121/75. HEENT: Head: Normocephalic. Pupils are equal and reactive to light, anicteric. Oropharynx: Mucous membranes moist. He does have white patches on his tongue. NECK: Supple. No adenopathy. No nuchal rigidity. RESPIRATORY: Diminished breath sounds. Prolonged respiratory phase. No wheezing, rhonchi, or rales. No increased work of breathing. CARDIAC: Tachycardia. Systolic murmur, most pronounced at the apex, blowing murmur. ABDOMEN: Soft, nontender, nondistended. EXTREMITIES: No clubbing, cyanosis, or edema; +2 DPs. NEUROLOGICAL: Alert and oriented x3. No gross focal neurologic deficits. DIAGNOSTIC STUDIES/LAB DATA: White count 7.3, hemoglobin 14.2, hematocrit 41, platelets 174. INR 0.99. ABG is pH 7.52, pCO2 36, pO2 is 57. Sodium 138, potassium 3.4, chloride 101, bicarb 26, BUN 13, creatinine 0.8, glucose 110, lactic acid 2.8. CRP 2.25, BNP is 209. Influenza A positive. Radiographic data: Chest CTA, no CTA evidence for pulmonary embolism, diffuse intralobular emphysematous changes, several small bilateral pulmonary nodules, some stable and others new, large 1.2 cm lesion with adjacent scar in the right middle lobe. The patient is considered high risk, recommend CT in 3 to 6 months which was discussed with the patient. ASSESSMENT AND PLAN: This is a 68-year-old male with past medical history of chronic obstructive pulmonary disease and obstructive sleep apnea who was recently diagnosed with flu who returns with shortness of breath and elevated blood pressure. 1. Shortness of breath. Assessment: The patient was initially wheezing on arrival and with a low PaO2. His respiratory status has significantly improved since management in the emergency room. I suspect the chronic obstructive pulmonary disease exacerbation is secondary to influenza. Plan: We will continue albuterol nebs q.2 hours, DuoNeb q.4 hours, we will put him on Dulera in place of Symbicort. Would recommend a short prednisone course. He states he just started prednisone today 1 pill t.i.d. We will continue 40 daily for a short burst. Continue on Tamiflu, he requires 2 more days. IV fluids. 2. Hypertension. Assessment: The patient with elevated blood pressures. I suspect this is related to his shortness of breath and likely anxiety related to his shortness of breath. Blood pressures have since improved with improvement in his breathing. We will continue him on his lisinopril and monitor his blood pressures closely while he is here. 3. Chronic medical problems. Sleep disorder. He is on higher doses of Provigil than is recommended. We will discontinue this to 200 mg in the morning. Continue him on his Remeron. 4. Chronic pain and constipation. Continue him on his home regimen. 5. Diet, regular diet with IV fluids. 6. DVT prophylaxis. The patient scores high risk, place him on heparin subcutaneous t.i.d. 7. Code status, full code. PATIENT SPENT: Greater than 45 minutes was spent doing the history and physical , more than half time was spent in direct patient contact. [id number]/[facility] #: [id number] EREN
[2018-10-24] MEDS ORDERED: Heparin VIAL(*) 5000 UNITS/ML VIAL (FIVE THOUSAND) SUBCUT SCH (06:00)
[2018-10-24] MEDS: Nystatin SUSPENSION* 100000 UNITS/ML 5 ML UDC PO SCH ×2 (06:11→08:26)
[2018-10-24] MEDS ORDERED: Morphine TAB Extended Release (*) 30 MG TAB.ER PO SCH (08:00)
[2018-10-24] MEDS ORDERED: Modafinil TAB* 100 MG PO SCH (08:00)
[2018-10-24 08:16] VITALS: BP 173/87
[2018-10-24] MEDS ORDERED: predniSONE TAB* 20 MG PO SCH (09:00)
[2018-10-24] MEDS ORDERED: Cetirizine* 10 MG TAB PO SCH (09:00)
[2018-10-24] MEDS ORDERED: Mometasone/Formoter 200/5 MDI INH SCH (09:00)
[2018-10-24] MEDS ORDERED: Lactulose* 15 ML UDC PO SCH (09:00)
[2018-10-24] MEDS ORDERED: Docusate CAP* 100 MG PO SCH (09:00)
[2018-10-24] MEDS ORDERED: Oseltamivir CAP* 75 MG CAP PO SCH (09:00)
[2018-10-24] MEDS ORDERED: Lisinopril TAB* 10 MG PO SCH (09:00)
--- NOTE | 2018-10-24 14:34 | DS ---
CC: Dr. Branch * DISCHARGE SUMMARY: DATE OF ADMISSION: 10/24/18 DATE OF DISCHARGE: 10/24/18 PRIMARY CARE PROVIDER: Dr. Branch. CHIEF COMPLAINT: Shortness of breath. HISTORY OF PRESENT ILLNESS/HOSPITAL COURSE: Mr. Dickerson is a 68-year-old male who has a history of COPD and obstructive sleep apnea, not utilizing CPAP at night due to PTSD, who presents to the emergency room with complaints of progressive shortness of breath. The patient was in the ER on 10/22/18 and was diagnosed with influenza. The patient was discharged on Tamiflu. He has subsequently developed progressive shortness of breath. The patient received standing nebulizer treatments as well as prednisone and with this he is feeling dramatically better at the time of my evaluation. The patient states that he believes that he needs a nebulizer machine at home stating that it is more effective than his inhalers. I would agree with this especially during times of acute exacerbation. I believe the patient had a mild COPD exacerbation secondary to influenza. The patient has been instructed to stop all antibiotics since I do not believe there is a bacterial component. He will be discharged home to continue on his Tamiflu to complete the course and a prednisone taper. A prescription for albuterol nebulizer has also been provided to the patient. A nebulizer machine will be delivered through the [place] tomorrow. The patient has ambulated around the entire floor without any shortness of breath or evidence of hypoxia. At this point, the patient was felt to be stable for discharge home. PHYSICAL EXAMINATION: On the day of discharge, the patient is awake, alert, and oriented, sitting up on the edge of the bed, eating breakfast, in no acute distress. Cardiac exam reveals a normal S1, S2 with a regular rate and rhythm. His lungs are clear with diminished breath sounds, but no crackles and no wheezing. Abdomen is soft, nontender, nondistended. Musculoskeletal: There is no cyanosis or clubbing of the digits. There is full active range of motion of all 4 limbs. His skin is warm and dry. FOLLOWUP CONCERNS: The patient is being discharged home today, 10/24/18. ACTIVITY LEVEL: As tolerated. DIET: Regular. CONDITION ON DISCHARGE: Improved and stable. TIME SPENT: Twenty-five minutes was spent discharging this patient. [id number]/[facility] #: [id number] HEALTH SYSTEMMoe
[2018-10-24] MEDS ORDERED: Mirtazapine TAB* 15 MG PO SCH (21:00)
== END 2018-10-24 11:49 | disposition home or self-care (01) ==
LOC: ED 16:05 → MED 10-24 01:53
PROVIDERS: ADMIT Pediatrics; ATTEND Hospitalist
DX: R06.02 Shortness of breath (principal); J44.9 Chronic obstructive pulmonary disease, unspecified; G47.33 Obstructive sleep apnea (adult) (pediatric); I10 Essential (primary) hypertension; F43.10 Post-traumatic stress disorder, unspecified; M51.35 Other intervertebral disc degeneration, thoracolumbar region; G89.29 Other chronic pain; K59.00 Constipation, unspecified; G47.9 Sleep disorder, unspecified; Z87.891 Personal history of nicotine dependence; Z88.0 Allergy status to penicillin
CPT/HCPCS: 36415; 71045; 71275; 80053; 82803; 83605; 83880; 85025; 85610; 85730; 86140; 94640; 99285; A9270-GY; G0378; J0360; J0696; J1644; J1885; J2405; J2930; J3475; J7512; Q9967

== ENCOUNTER 2019-04-24 13:54 | Emergency (ER) | payer OTHER ==
[2019-04-24] MEDS ORDERED: Ibuprofen TAB* 600 MG PO ONE (15:31)
[2019-04-24] MEDS ORDERED: Bacitracin OINTMENT* 0.5% 0.5 oz TUBE TOPICAL ONE (15:32)
[2019-04-24] MEDS ORDERED: Tetan/Diph/Pertus SYR(Tdap)* 0.5 ML SYR(BOOSTRIX) use SYR IM ONE (15:32)
--- NOTE | 2019-04-24 15:34 | ED ---
Upper Extremity Pain - HPI Summary HPI Summary: Patient is a 60-year-old male who presents emergency department for injury to secondary to left hand that occurred just prior to arrival. Patient was using a table saw when he accidentally cut his finger. Patient unaware of his last tetanus immunization. No significant past medical history. Symptoms are mild in severity. No current modifying factors. - History of Current Complaint Chief Complaint: EDLacSutureRecheck Stated Complaint: FINGER LAC PER PT Time Seen by Provider: 04/24/19 14:50 Hx Obtained From: Patient - Allergies/Home Medications Allergies/Adverse Reactions: Allergies Allergy/AdvReac Type Severity Reaction Status Date / Time Penicillins Allergy Severe Rash Verified 04/24/19 14:00 levofloxacin [From Levaquin] AdvReac See Comment Verified 04/24/19 14:00 PMH/Surg Hx/FS Hx/Imm Hx Previously Healthy: Yes Endocrine/Hematology History: Denies: Hx Anticoagulant Therapy, Hx Blood Disorders, Hx Diabetes, Hx Anemia Cardiovascular History: Reports: Hx Hypertension Denies: Hx Hypercholesterolemia, Hx Pacemaker/ICD Respiratory History: Reports: Hx Chronic Obstructive Pulmonary Disease (COPD), Hx Sleep Apnea Denies: Hx Pneumonia GI History: Reports: Hx Hiatal Hernia - had surgery, Other GI Disorders Denies: Hx Gastrointestinal Bleed, Hx Ulcer History: Denies: Hx Acute Renal Failure, Hx Chronic Renal Failure, Hx Renal Disease Musculoskeletal History: Reports: Hx Arthritis, Hx Back Problems - degenerative disc disease, Other Musculoskeletal History Sensory History: Reports: Hx Contacts or Glasses Denies: Hx Hearing Aid Opthamlomology History: Reports: Hx Contacts or Glasses Neurological History: Reports: Other Neuro Impairments/Disorders - PAIN CLINIC INJECTIONS Psychiatric History: Reports: Hx Anxiety, Hx Depression, Hx Panic Disorder, Hx Post Traumatic Stress Disorder - interferes with sleep, Hx Substance Abuse - 30 years ago - Surgical History Surgery Procedure, Year, and Place: HIATAL HERNIA. RT FOOT SURGERY. FACIAL SURGERY. NOSE SURGERY. circumcision 2011, [facility] – [place] - Immunization History Date of Tetanus Vaccine: unknown Date of Influenza Vaccine: 04/2018 Infectious Disease History: No Infectious Disease History: Reports: Hx Hepatitis - Hep C, cured 2 years Denies: Hx of Known/Suspected MRSA, Traveled Outside the [place] in Last 30 Days - Family History Known Family History: Positive: Non-Contributory Negative: Cardiac Disease, Hypertension - Social History Occupation: Retired Lives: With Family Alcohol Use: None Hx Substance Use: No Substance Use Type: Reports: None Substance Use Comment - Amount & Last Used: ms contin, morphine ir rx'd Hx Tobacco Use: Yes - not currently Smoking Status (MU): Former Smoker Type: Cigarettes Have You Smoked in the Last Year: No Review of Systems Positive: Other - injury 2nd digit of left hand All Other Systems Reviewed And Are Negative: Yes Physical Exam Triage Information Reviewed: Yes Vital Signs On Initial Exam: Initial Vitals Temp Pulse Resp BP Pulse Ox 97.8 F 78 16 155/84 95 04/24/19 14:00 04/24/19 14:00 04/24/19 14:00 04/24/19 14:00 04/24/19 14:00 Vital Signs Reviewed: Yes Appearance: Positive: Well-Appearing - Pt. sitting on bed in NAD. Skin: Positive: Warm, Dry Head/Face: Positive: Normal Head/Face Inspection Eyes: Positive: Normal, EOMI Neck: Positive: Supple Musculoskeletal: Positive: Other - Avulsion to the distal tip of 2nd digit of left hand including just the distal nail. Minimal active bleeding. Full ROM of digit. Neurological: Positive: Normal, CN Intact II-III Psychiatric: Positive: Affect/Mood Appropriate Diagnostics - Vital Signs Vital Signs Temp Pulse Resp BP Pulse Ox 04/24/19 14:00 97.8 F 78 16 155/84 95 - Laboratory Lab Statement: Any lab studies that have been ordered have been reviewed, and results considered in the medical decision making process. Course/Dx - Course Course Of Treatment: Patient with avulsion injury to second digit of left hand. Patient declines x-ray to evaluate for open fracture. Tetanus was updated. Wound was irrigated, cleaned and sterile dressing placed. Finger splint placed for comfort. Prophylactically placed on Keflex. Advised follow-up with PCP for wound check in 3-5 days. Return to the ER for signs of infection. Patient understands and agrees with plan. - Diagnoses Differential Diagnosis/HQI/PQRI: Positive: Fracture (Open) Provider Diagnoses: Finger avulsion Discharge ED - Sign-Out/Discharge Documenting (check all that apply): Patient Departure Patient Received Moderate/Deep Sedation with Procedure: No - Discharge Plan Condition: Good Disposition: HOME Prescriptions: Cephalexin CAP* [Keflex CAP*] 500 mg PO BID #20 cap Patient Education Materials: Skin Avulsion (ED), Nail Avulsion (ED) Referrals: Jaiden Branch MD [Primary Care Provider] - Additional Instructions: Follow up with your PCP for wound check in 3-5 days Take antibiotic as directed Keep wound clean and dry Ice and elevate Ibuprofen as directed for pain Return to ER for redness, swelling, drainage from wound or if concerned - Billing Disposition and Condition Condition: GOOD Disposition: Home
[2019-04-24 16:15] VITALS: BP 166/66
== END 2019-04-24 16:14 | disposition home or self-care (01) ==
LOC: ED 13:54
DX: S61.201A Unspecified open wound of left index finger without damage to nail, initial encounter (principal); Z23 Encounter for immunization; W31.2XXA Contact with powered woodworking and forming machines, initial encounter; Y92.9 Unspecified place or not applicable; I10 Essential (primary) hypertension; J44.9 Chronic obstructive pulmonary disease, unspecified; F41.9 Anxiety disorder, unspecified; F32.9 Major depressive disorder, single episode, unspecified; Z87.891 Personal history of nicotine dependence; Z88.1 Allergy status to other antibiotic agents; Z88.0 Allergy status to penicillin; Z79.899 Other long term (current) drug therapy
CPT/HCPCS: 90471; 90715; 99282; A9270-GY

== ENCOUNTER 2020-02-23 18:10 | Inpatient (IN) ==
[2020-02-23] MEDS ORDERED: HYDROmorphone 0.5 MG/0.5 ML SYRINGE IV ONE ×2 (18:25→18:56)
[2020-02-23] MEDS ORDERED: NS 0.9% 1000 ml BAG 1,000 ML IV ONE ×2 (18:25→21:29)
[2020-02-23] MEDS ORDERED: Ondansetron 4 mg VIAL 2 MG/ML 2 ml VIAL IV ONE (18:56)
[2020-02-23 19:24] LABS: ABS Lymphocytes 0.4 10^3/ul (1.0-4.8); ABS Monocytes 0.2 10^3/ul (0-0.8); Hematocrit 33 % (42-52); Hemoglobin 11.8 g/dL (14.0-18.0); Mean Corpuscular HGB Conc 36 g/dL (31-36); Mean Corpuscular Hemoglobin 33 pg (27-31); Mean Corpuscular Volume 90 fL (80-94); Mean Platelet Volume 9.1 fL (7.4-10.4); Platelet Count 158 10^3/uL (150-450); Red Blood Count 3.63 10^6 /uL (4.18-5.48); Red Cell Distribution Width 13 % (10-15); White Blood Count 5.6 10^3/uL (3.5-10.8)
[2020-02-23 19:45] LABS: ALT 19 U/L (7-52); AST 18 U/L (13-39); Albumin 3.6 g/dL (3.2-5.2); Albumin/Globulin Ratio 1.8 (1-3); Alkaline Phosphatase 40 U/L (34-104); BUN/Creatinine Ratio 15.7 (8-20); Blood Urea Nitrogen 11 mg/dL (6-24); C Reactive Protein < 1.00 mg/L (<8.01); CO2 Carbon Dioxide 20 mmol/L (22-32); Calcium 7.1 mg/dL (8.6-10.3); EGFR African American 135.3 (>60); EGFR Non-African American 111.8 (>60); Glucose 100 mg/dL (70-100); Lipase 11 U/L (11.0-82.0); Potassium 3.5 mmol/L (3.5-5.0); Sodium 139 mmol/L (135-145); Total Protein 5.6 g/dL (6.4-8.9)
[2020-02-23 19:58] LABS: Anion Gap 7 mmol/L (2-11); Chloride 112 mmol/L (101-111)
[2020-02-23] MEDS ORDERED: Al Hydrox/Mg Hydrox/Simet LIQ 30 ML UDC PO ONE (20:00)
[2020-02-23] MEDS ORDERED: Iohexol 300 (CONTRAST) 10 ML SDV IV ONE (20:05)
[2020-02-23] MEDS ORDERED: HYDROmorphone 1 MG/1 ML SYRINGE IV ONE ×2 (20:17→22:35)
[2020-02-23] MEDS ORDERED: Lidocaine 2% JELLY 10 ML JELLY TOPICAL ONE (21:42)
[2020-02-23 21:48] LABS: Troponin I 0.06 ng/mL (<0.03)
[2020-02-23] MEDS ORDERED: Morphine 4 MG/ML VIAL (1 ml) IV ONE (22:26)
[2020-02-23] MEDS ORDERED: Albuterol 2.5mg/3 ml (0.083%) NEB.SOLN INH PRN (22:36)
[2020-02-23] MEDS ORDERED: Morphine 4 MG/ML VIAL (1 ml) IV PRN (23:13)
[2020-02-23] MEDS: hydrALAZINE 20 mg/ml 1 ML Vial IV IV SLOW PU PRN (23:35)
[2020-02-24] LABS: Troponin I 0.67 ng/mL (<0.03)
[2020-02-24] MEDS: HYDROmorphone 1 MG/1 ML SYRINGE IV PRN ×6 (00:32→23:41)
[2020-02-24] MEDS ORDERED: Morphine ORAL.SOLN 10 mg 2 mg/ml UDC 5 ml (10 mg) PO PRN (02:48)
[2020-02-24] MEDS: NS 0.9% 1000 ml BAG 1,000 ML IV SCH ×4 (04:30→23:29)
[2020-02-24] MEDS: Ondansetron 4 mg VIAL 2 MG/ML 2 ml VIAL IV PRN ×2 (05:35→18:45)
[2020-02-24] MEDS ORDERED: Lorazepam PYXIS KEY PRN ×2 (05:56→10:29)
[2020-02-24] MEDS ORDERED: Heparin 5000 UNITS/ML 1 mL VIAL SUBCUT SCH (06:00)
[2020-02-24] MEDS: LORazepam 2 mg VIAL 1 ml IV PUSH PRN ×2 (06:23→20:06)
[2020-02-24 06:48] LABS: ABS Lymphocytes 0.8 10^3/ul (1.0-4.8); ABS Monocytes 0.6 10^3/ul (0-0.8); ABS Neutrophils 8.1 10^3/ul (1.5-7.7); Hematocrit 43 % (42-52); Hemoglobin 15.2 g/dL (14.0-18.0); Lymphocyte % 8.6 %; Mean Corpuscular HGB Conc 35 g/dL (31-36); Mean Corpuscular Hemoglobin 32 pg (27-31); Mean Corpuscular Volume 91 fL (80-94); Mean Platelet Volume 9.4 fL (7.4-10.4); Nucleated Red Blood Cells % 0.1; Platelet Count 205 10^3/uL (150-450); Red Blood Count 4.76 10^6 /uL (4.18-5.48); Red Cell Distribution Width 14 % (10-15); White Blood Count 9.5 10^3/uL (3.5-10.8)
[2020-02-24 06:59] LABS: Anion Gap 10 mmol/L (2-11); BUN/Creatinine Ratio 14.4 (8-20); Blood Urea Nitrogen 16 mg/dL (6-24); CO2 Carbon Dioxide 22 mmol/L (22-32); Calcium 8.5 mg/dL (8.6-10.3); Chloride 103 mmol/L (101-111); EGFR African American 79.5 (>60); EGFR Non-African American 65.7 (>60); Glucose 121 mg/dL (70-100); Potassium 4.5 mmol/L (3.5-5.0); Sodium 135 mmol/L (135-145)
[2020-02-24] MEDS ORDERED: Morphine 10 MG/ML VIAL (1 ml) IV PRN (08:20)
[2020-02-24] MEDS: Morphine ER 30 mg TAB ** extended release PO SCH ×3 (09:18→19:45)
[2020-02-24 09:59] LABS: Creatine Kinase 212 U/L (10-223)
[2020-02-24 10:04] LABS: CKMB ng/mL 34.1 ng/mL (0.6-6.3)
[2020-02-24] MEDS: Morphine 10 MG/ML VIAL (1 ml) IV PRN ×4 (10:14→23:39)
[2020-02-24] MEDS ORDERED: Metoprolol Tartrate 5 mg VIAL 5 ml VIAL (1 mg/ml) IV PRN (10:28)
[2020-02-24] MEDS ORDERED: Perflutren Lipid Microsphere 3 ML VIAL ONE (10:29)
[2020-02-24] MEDS ORDERED: LORazepam 2 mg VIAL 1 ml IV PUSH ONE (10:30)
[2020-02-24] MEDS ORDERED: Metoprolol Tartrate 5 mg VIAL 5 ml VIAL (1 mg/ml) IV ONE (10:42)
[2020-02-24 15:02] LABS: CKMB ng/mL 35.1 ng/mL (0.6-6.3)
[2020-02-24 15:04] LABS: Troponin I 2.61 ng/mL (<0.03)
[2020-02-24 15:21] LABS: Creatine Kinase 239 U/L (10-223)
[2020-02-24] MEDS: hydrALAZINE 20 mg/ml 1 ML Vial IV IV SLOW PU PRN (18:56)
[2020-02-24 19:24] LABS: Troponin I 2.53 ng/mL (<0.03)
[2020-02-24] MEDS: Enoxaparin 40 MG/0.4 ML SYR SUBCUT SCH (20:06)
[2020-02-25] MEDS: Ondansetron 4 mg VIAL 2 MG/ML 2 ml VIAL IV PRN ×2 (01:14→16:49)
[2020-02-25] MEDS: LORazepam 2 mg VIAL 1 ml IV PUSH PRN ×4 (01:26→22:06)
[2020-02-25] MEDS: HYDROmorphone 1 MG/1 ML SYRINGE IV PRN ×4 (03:42→20:45)
[2020-02-25] MEDS: Morphine 10 MG/ML VIAL (1 ml) IV PRN ×4 (03:45→22:57)
[2020-02-25] MEDS: hydrALAZINE 20 mg/ml 1 ML Vial IV IV SLOW PU PRN ×2 (03:53→19:36)
[2020-02-25 06:01] LABS: Hematocrit 42 % (42-52); Hemoglobin 14.6 g/dL (14.0-18.0); Mean Corpuscular HGB Conc 35 g/dL (31-36); Mean Corpuscular Hemoglobin 32 pg (27-31); Mean Corpuscular Volume 91 fL (80-94); Mean Platelet Volume 9.8 fL (7.4-10.4); Platelet Count 231 10^3/uL (150-450); Red Blood Count 4.63 10^6 /uL (4.18-5.48); Red Cell Distribution Width 14 % (10-15); White Blood Count 15.3 10^3/uL (3.5-10.8)
[2020-02-25 06:26] LABS: BUN/Creatinine Ratio 20.8 (8-20); Calcium 8.3 mg/dL (8.6-10.3); EGFR African American 121.2 (>60); EGFR Non-African American 100.2 (>60); Magnesium 1.8 mg/dL (1.9-2.7); Potassium 4.2 mmol/L (3.5-5.0)
[2020-02-25] MEDS: NS 0.9% 1000 ml BAG 1,000 ML IV SCH (06:38)
[2020-02-25] MEDS ORDERED: NS 0.9% 1000 ml BAG 1,000 ML IV SCH (09:12)
[2020-02-25] MEDS: Metoprolol Tartrate 5 mg VIAL 5 ml VIAL (1 mg/ml) IV SCH ×3 (09:30→20:46)
[2020-02-25] MEDS: Morphine ER 30 mg TAB ** extended release PO SCH ×3 (09:44→20:46)
[2020-02-25 10:01] LABS: ABS Lymphocytes 0.8 10^3/ul (1.0-4.8); ABS Monocytes 1.1 10^3/ul (0-0.8); ABS Neutrophils 13.7 10^3/ul (1.5-7.7); Lymphocyte % 5.2 %
[2020-02-25] MEDS ORDERED: fentaNYL 100 mcg/2 ml 50 MCG/ML VIAL ONE (10:09)
[2020-02-25] MEDS ORDERED: Albuterol 2.5mg/3 ml (0.083%) NEB.SOLN INH ONE (11:02)
[2020-02-25] MEDS ORDERED: Ondansetron 4 mg VIAL 2 MG/ML 2 ml VIAL ONE ×2 (11:05→11:08)
[2020-02-25] MEDS ORDERED: Propofol 10 MG/ML 20 ML BTL ONE ×2 (11:05→11:08)
[2020-02-25] MEDS ORDERED: Esmolol 10 MG/ML 10 ML (100 mg) ONE (11:05)
[2020-02-25] MEDS ORDERED: Metoprolol Tartrate 5 mg VIAL 5 ml VIAL (1 mg/ml) ONE (11:05)
[2020-02-25] MEDS ORDERED: Etomidate 20 mg/10 ml 2 MG/ML 10 ml VIAL ONE ×2 (11:05→11:08)
[2020-02-25] MEDS ORDERED: Dexamethasone IV 4 MG/ML VIAL 1 ml VIAL ONE ×2 (11:05→11:08)
[2020-02-25] MEDS ORDERED: Succinylcholine 200 mg VIAL 20 mg/ml 10 ml VIAL (200 mg) ONE (11:08)
[2020-02-25] MEDS ORDERED: EPINEPHrine SYR 0.1MG/ML 10 ml SYRINGE ONE (11:08)
[2020-02-25] MEDS ORDERED: Lidocaine 2% PF 5 ML VIAL ONE (11:08)
[2020-02-25] MEDS ORDERED: EPINEPHrine,Rac 2.25% NEB.SOL 0.5 ML ONE (11:15)
[2020-02-25] MEDS ORDERED: Labetalol IV 5 MG/ML 20 ml VIAL ONE (11:16)
[2020-02-25] MEDS ORDERED: Naloxone 0.4 mg VIAL 0.4 mg/ml 1 ml VIAL IV PRN (11:17)
[2020-02-25] MEDS ORDERED: Magnesium Sulfate IV 1GM/100ML 1 GM/100 ML BAG IV ONE (11:25)
[2020-02-25] MEDS ORDERED: Lactated Ringers 1000 ml BAG 1,000 ML IV ONE (12:00)
[2020-02-25 13:19] LABS: Hematocrit 38 % (42-52); Hemoglobin 13.1 g/dL (14.0-18.0); Mean Corpuscular HGB Conc 35 g/dL (31-36); Mean Corpuscular Hemoglobin 32 pg (27-31); Mean Corpuscular Volume 92 fL (80-94); Mean Platelet Volume 9.5 fL (7.4-10.4); Platelet Count 182 10^3/uL (150-450); Red Blood Count 4.12 10^6 /uL (4.18-5.48); Red Cell Distribution Width 14 % (10-15); White Blood Count 12.3 10^3/uL (3.5-10.8)
[2020-02-25] MEDS: Pantoprazole VIAL 40 MG VIAL IV SCH (13:25)
[2020-02-25] MEDS: Lactated Ringers 1000 ml BAG 1,000 ML IV SCH ×2 (14:08→21:38)
[2020-02-25] MEDS: Morphine ORAL.SOLN 10 mg 2 mg/ml UDC 5 ml (10 mg) PO PRN (16:19)
[2020-02-25] MEDS: Prochlorperazine 5 mg/ml 2 ml VIAL (10 mg) IV PRN (20:44)
[2020-02-25] MEDS: Enoxaparin 40 MG/0.4 ML SYR SUBCUT SCH (20:54)
[2020-02-26] MEDS: Metoprolol Tartrate 5 mg VIAL 5 ml VIAL (1 mg/ml) IV SCH ×2 (03:07→07:24)
[2020-02-26] MEDS: HYDROmorphone 1 MG/1 ML SYRINGE IV PRN ×4 (03:07→19:51)
[2020-02-26] MEDS: Morphine ORAL.SOLN 10 mg 2 mg/ml UDC 5 ml (10 mg) PO PRN ×2 (03:35→23:00)
[2020-02-26] MEDS: Albuterol/Ipratropium NEB.SOL (2.5/0.5 MG) 3 ML NEB.SOLN INH PRN ×2 (03:38→10:34)
[2020-02-26] MEDS: Lactated Ringers 1000 ml BAG 1,000 ML IV SCH (05:12)
[2020-02-26] MEDS: Prochlorperazine 5 mg/ml 2 ml VIAL (10 mg) IV PRN (06:24)
[2020-02-26 06:50] LABS: Hematocrit 36 % (42-52); Hemoglobin 12.6 g/dL (14.0-18.0); Mean Corpuscular HGB Conc 36 g/dL (31-36); Mean Corpuscular Hemoglobin 32 pg (27-31); Mean Corpuscular Volume 91 fL (80-94); Platelet Count 170 10^3/uL (150-450); Red Blood Count 3.88 10^6 /uL (4.18-5.48); Red Cell Distribution Width 14 % (10-15)
[2020-02-26] MEDS: Morphine 10 MG/ML VIAL (1 ml) IV PRN (06:51)
[2020-02-26 07:01] LABS: Albumin 3.6 g/dL (3.2-5.2); Albumin/Globulin Ratio 1.5 (1-3); BUN/Creatinine Ratio 22.6 (8-20); Calcium 8.4 mg/dL (8.6-10.3); EGFR African American 109.6 (>60); EGFR Non-African American 90.6 (>60); Globulin 2.4 g/dL (2-4); Magnesium 2.1 mg/dL (1.9-2.7); Total Bilirubin 0.6 mg/dL (0.2-1.0)
[2020-02-26] MEDS: LORazepam 2 mg VIAL 1 ml IV PUSH PRN (07:24)
[2020-02-26] MEDS: Pantoprazole VIAL 40 MG VIAL IV SCH (07:24)
[2020-02-26] MEDS: Ondansetron 4 mg VIAL 2 MG/ML 2 ml VIAL IV PRN ×3 (07:25→23:00)
[2020-02-26] MEDS: Morphine ER 30 mg TAB ** extended release PO SCH ×3 (07:34→21:16)
[2020-02-26] MEDS: Al Hydrox/Mg Hydrox/Simet LIQ 30 ML UDC PO PRN (19:39)
[2020-02-26] MEDS: Lactulose 30 ml UDC PO PRN (19:39)
[2020-02-26] MEDS: Enoxaparin 40 MG/0.4 ML SYR SUBCUT SCH (21:17)
[2020-02-27] MEDS: Al Hydrox/Mg Hydrox/Simet LIQ 30 ML UDC PO PRN ×4 (02:28→23:24)
[2020-02-27] MEDS: HYDROmorphone 1 MG/1 ML SYRINGE IV PRN ×5 (02:28→21:01)
[2020-02-27] MEDS: LORazepam 2 mg VIAL 1 ml IV PUSH PRN ×2 (02:46→22:15)
[2020-02-27] MEDS: Morphine ORAL.SOLN 10 mg 2 mg/ml UDC 5 ml (10 mg) PO PRN ×3 (06:10→23:24)
[2020-02-27] MEDS: Ondansetron 4 mg VIAL 2 MG/ML 2 ml VIAL IV PRN ×3 (07:00→21:01)
[2020-02-27 07:26] LABS: Hematocrit 37 % (42-52); Hemoglobin 13.2 g/dL (14.0-18.0); Mean Corpuscular HGB Conc 35 g/dL (31-36); Mean Corpuscular Hemoglobin 32 pg (27-31); Mean Corpuscular Volume 91 fL (80-94); Mean Platelet Volume 10.5 fL (7.4-10.4); Platelet Count 167 10^3/uL (150-450); Red Blood Count 4.11 10^6 /uL (4.18-5.48); Red Cell Distribution Width 13 % (10-15); White Blood Count 8.9 10^3/uL (3.5-10.8)
[2020-02-27] MEDS: Morphine ER 30 mg TAB ** extended release PO SCH ×3 (08:56→21:00)
[2020-02-27] MEDS: Enoxaparin 40 MG/0.4 ML SYR SUBCUT SCH (21:01)
[2020-02-27] MEDS: Lactulose 30 ml UDC PO PRN (22:14)
[2020-02-28] MEDS: Ondansetron 4 mg VIAL 2 MG/ML 2 ml VIAL IV PRN ×2 (04:34→13:38)
[2020-02-28] MEDS: HYDROmorphone 1 MG/1 ML SYRINGE IV PRN (04:46)
[2020-02-28] MEDS: Morphine ER 30 mg TAB ** extended release PO SCH ×2 (07:48→13:38)
[2020-02-28] MEDS: Al Hydrox/Mg Hydrox/Simet LIQ 30 ML UDC PO PRN (07:52)
[2020-02-28 12:02] VITALS: BP 155/74
== END 2020-02-28 15:35 | disposition home or self-care (01) | DRG 380 ==
LOC: ED 18:10 → MEDTELE 02-24 02:00
PROVIDERS: ADMIT Internal Medicine; ATTEND Internal Medicine
PROC: O.GIEGD (2020-02-25 09:40)

== ENCOUNTER 2024-03-16 08:22 | Inpatient (IN) ==
[2024-03-16] MEDS: Morphine 4 MG/ML VIAL (1 ml) IV ONE ×2 (10:52→12:38)
[2024-03-16] MEDS: Ondansetron 4 mg VIAL 2 MG/ML 2 ml VIAL IV ONE (10:52)
[2024-03-16] MEDS: NS 0.9% 1000 ml BAG 1,000 ML IV ONE (10:53)
[2024-03-16 11:07] LABS: Hematocrit 45.3 % (38-53); Hemoglobin 16.1 g/dL (13.2-16.3); Mean Corpuscular Hemoglobin 29.5 pg (27-33); Mean Corpuscular Hgb Conc 35.5 g/dL (31-36); Mean Corpuscular Volume 83.1 fL (80-97); Red Blood Count 5.45 10^6/uL (4.06-5.63); Red Cell Distribution Width 15.1 % (12-17); White Blood Count 8.9 10^3/uL (3.6-10.2)
[2024-03-16 11:12] LABS: Activated Partial Thrombo Time 29.8 seconds (26.0-38.0); INR 1.2 (0.83-1.13)
[2024-03-16 11:32] LABS: ABS Lymphocytes 0.7 10^3/uL (1.0-4.8); ABS Monocytes 0.7 10^3/uL (0.0-1.1); ABS Neutrophils 7.5 10^3/uL (1.5-7.6); ABS Nucleated RBC 0.04 10^3/ul; Lymphocyte % 7.5 %; Mean Platelet Volume 8.9 fL (7.5-11.2); Nucleated Red Blood Cells % 0.4 %/100WBC (0.0-0.8); Platelet Count 243 10^3/uL (150-450)
[2024-03-16] MEDS: Lactated Ringers SEPSIS* BAG 2,310 ML IV ONE (12:23)
[2024-03-16 12:39] LABS: Albumin 4.7 g/dL (3.2-5.2); Albumin/Globulin Ratio 1.6 (1-3); C Reactive Protein 99.36 mg/L (<8.01); Calcium 9.4 mg/dL (8.6-10.3); Creatinine, Serum 0.76 mg/dL (0.67-1.17); Globulin 2.9 g/dL (2-4); Potassium 4.5 mmol/L (3.5-5.0); Total Bilirubin 1.8 mg/dL (0.2-1.0); Total Protein 7.6 g/dL (6.4-8.9); eGFR CKD-EPI 94.9 (>60)
[2024-03-16 12:49] LABS: Urine Appearance Clear; Urine Bilirubin Negative (Negative); Urine Blood 1+ (Negative); Urine Color Light-Yellow; Urine Glucose Trace (Negative); Urine Ketones 1+ (Negative); Urine Nitrite Negative (Negative); Urine Protein 1+ (>=30 mg/dL) (Negative); Urine Specific Gravity 1.014 (1.002-1.030); Urine Urobilinogen Negative (Negative)
[2024-03-16 12:51] LABS: Urine Bacteria Absent /HPF (Absent); Urine Red Blood Cell 2+(6-10/hpf) /HPF (0-Trace); Urine White Blood Cell Trace(0-5/hpf) /HPF (0-Trace)
[2024-03-16] MEDS: Iohexol 350 (CONTRAST) 500 ML MDV IV ONE (13:00)
[2024-03-16] MEDS: HYDROmorphone 1 MG/1 ML SYRINGE IV ONE (13:47)
[2024-03-16] MEDS: Prochlorperazine 5 mg/ml 2 ml VIAL (10 mg) IV ONE (13:47)
[2024-03-16 15:12] LABS: Calcium 8.3 mg/dL (8.6-10.3); Creatinine, Serum 0.68 mg/dL (0.67-1.17); Potassium 4.3 mmol/L (3.5-5.0); eGFR CKD-EPI 98.1 (>60)
[2024-03-16 15:24] LABS: Urine Potassium Concentration 12.7 mmol/L
[2024-03-16 18:07] LABS: Urine Creatinine Concentration 17.18 mg/dL (20.00-370.00)
[2024-03-16] MEDS ORDERED: Morphine ER 15 mg TAB ** extended release PO PRN (18:42)
[2024-03-16 18:43] LABS: Osmolality Serum 259 mOsm/kg (275-295); Urine Osmo 271 mOsm/kg (150-1150)
[2024-03-16 18:53] LABS: Creatinine, Serum 0.75 mg/dL (0.67-1.17); Potassium 4.4 mmol/L (3.5-5.0); eGFR CKD-EPI 95.3 (>60)
[2024-03-16] MEDS ORDERED: Albuterol HFA INHALER 8 gm MDI INH PRN (19:33)
[2024-03-16] MEDS: Morphine ER 30 mg TAB ** extended release PO SCH (20:20)
[2024-03-16] MEDS: Enoxaparin 40 MG/0.4 ML SYR SUBCUT SCH (20:23)
[2024-03-16] MEDS: Mometasone/Formoter 200/5 MDI INH SCH (20:30)
[2024-03-16] MEDS: NS 0.9% 1000 ml BAG 1,000 ML IV SCH (23:08)
[2024-03-16] MEDS: Calcium Carb (TUMS) 500 mg CHEW TAB PO PRN (23:14)
[2024-03-16] MEDS ORDERED: Morphine ER 30 mg TAB ** extended release PO PRN (23:51)
[2024-03-17] MEDS: Morphine ER 15 mg TAB ** extended release PO PRN (01:46)
[2024-03-17 02:42] LABS: Calcium 8.8 mg/dL (8.6-10.3); Creatinine, Serum 0.81 mg/dL (0.67-1.17); Potassium 4.4 mmol/L (3.5-5.0); eGFR CKD-EPI 93.1 (>60)
[2024-03-17] MEDS: SPIRIVA Respimat (tiotropium) 2.5 mcg/inh Inhaler INH SCH (07:21)
[2024-03-17 07:28] LABS: Hematocrit 40.2 % (38-53); Hemoglobin 14.5 g/dL (13.2-16.3); Mean Corpuscular Hemoglobin 29.5 pg (27-33); Mean Corpuscular Volume 81.9 fL (80-97); Red Blood Count 4.91 10^6/uL (4.06-5.63); Red Cell Distribution Width 15.3 % (12-17); White Blood Count 7.9 10^3/uL (3.6-10.2)
[2024-03-17 07:51] LABS: Calcium 8.5 mg/dL (8.6-10.3); Creatinine, Serum 0.72 mg/dL (0.67-1.17); Magnesium 1.7 mg/dL (1.9-2.7); Potassium 3.9 mmol/L (3.5-5.0); eGFR CKD-EPI 96.5 (>60)
[2024-03-17 08:08] LABS: Mean Platelet Volume 9.3 fL (7.5-11.2); Platelet Count 214 10^3/uL (150-450)
[2024-03-17] MEDS: Morphine ER 30 mg TAB ** extended release PO SCH ×2 (08:09→14:31)
[2024-03-17] MEDS: NF:Azelastine 0.1% Nasal (NF) 30 ML BTL BOTH NARES SCH (08:17)
[2024-03-17] MEDS ORDERED: Morphine ER 15 mg TAB ** extended release PO SCH (09:00)
[2024-03-17] MEDS: NS 0.9% 1000 ml BAG 1,000 ML IV ONE (12:50)
[2024-03-17] MEDS: NS 0.9% 1000 ml BAG 1,000 ML IV SCH (14:06)
[2024-03-17] MEDS: Psyllium PAK PO SCH (14:31)
[2024-03-17 17:18] LABS: Calcium 8.1 mg/dL (8.6-10.3); Potassium 3.9 mmol/L (3.5-5.0)
[2024-03-17 18:19] LABS: Creatinine, Serum 0.72 mg/dL (0.67-1.17); eGFR CKD-EPI 96.5 (>60)
[2024-03-18 00:48] LABS: Calcium 8.3 mg/dL (8.6-10.3); Creatinine, Serum 0.74 mg/dL (0.67-1.17); eGFR CKD-EPI 95.7 (>60)
[2024-03-18 07:41] LABS: Calcium 8.5 mg/dL (8.6-10.3); Creatinine, Serum 0.75 mg/dL (0.67-1.17); Magnesium 1.8 mg/dL (1.9-2.7); Potassium 4.4 mmol/L (3.5-5.0); eGFR CKD-EPI 95.3 (>60)
[2024-03-18 08:29] LABS: ABS Lymphocytes 1.1 10^3/uL (1.0-4.8); ABS Monocytes 0.6 10^3/uL (0.0-1.1); ABS Neutrophils 3.3 10^3/uL (1.5-7.6); ABS Nucleated RBC 0.01 10^3/ul; Eosinophil % 0.1 %; Hematocrit 37.3 % (38-53); Hemoglobin 13.1 g/dL (13.2-16.3); Large Platelets Present; Lymphocyte % 22.2 %; Mean Corpuscular Hemoglobin 29.4 pg (27-33); Mean Corpuscular Hgb Conc 35.2 g/dL (31-36); Mean Corpuscular Volume 83.6 fL (80-97); Mean Platelet Volume 8.8 fL (7.5-11.2); Nucleated Red Blood Cells % 0.2 %/100WBC (0.0-0.8); Platelet Count 207 10^3/uL (150-450); Red Blood Count 4.46 10^6/uL (4.06-5.63); White Blood Count 5.1 10^3/uL (3.6-10.2)
[2024-03-18] MEDS ORDERED: Psyllium PAK PO SCH (09:57)
[2024-03-18] MEDS: Morphine ORAL.SOLN 10 mg 2 mg/ml UDC 5 ml (10 mg) PO SCH (09:58)
[2024-03-18] MEDS: Psyllium PAK PO SCH (10:04)
[2024-03-18] MEDS: Morphine ORAL.SOLN 10 mg 2 mg/ml UDC 5 ml (10 mg) PO PRN (22:03)
[2024-03-18 22:09] LABS: Blood Urea Nitrogen 5 mg/dL (6-24); CO2 Carbon Dioxide 22 mmol/L (22-32); Calcium 8.4 mg/dL (8.6-10.3); Chloride 99 mmol/L (101-111); Creatinine, Serum 0.66 mg/dL (0.67-1.17); Glucose 113 mg/dL (70-100); Magnesium 1.7 mg/dL (1.9-2.7); Sodium 128 mmol/L (135-145)
[2024-03-18 22:10] LABS: Anion Gap 7 mmol/L (2-16)
[2024-03-18 23:32] LABS: Phosphorus 3.6 mg/dL (2.5-5.0); Potassium Redraw 4.2 mmol/L (3.5-5.0)
[2024-03-19 06:32] LABS: Potassium 4.2 mmol/L (3.5-5.0)
[2024-03-19 06:33] LABS: Calcium 8.5 mg/dL (8.6-10.3); Creatinine, Serum 0.67 mg/dL (0.67-1.17); Magnesium 1.8 mg/dL (1.9-2.7); eGFR CKD-EPI 98.6 (>60)
[2024-03-19 07:31] LABS: ABS Eosinophils 0.1 10^3/uL (0.0-0.5); ABS Lymphocytes 1.7 10^3/uL (1.0-4.8); ABS Monocytes 0.5 10^3/uL (0.0-1.1); ABS Neutrophils 2.9 10^3/uL (1.5-7.6); ABS Nucleated RBC 0.01 10^3/ul; Hematocrit 35.7 % (38-53); Hemoglobin 12.4 g/dL (13.2-16.3); Large Platelets Present; Lymphocyte % 31.9 %; Mean Corpuscular Hemoglobin 29.4 pg (27-33); Mean Corpuscular Hgb Conc 34.8 g/dL (31-36); Mean Corpuscular Volume 84.2 fL (80-97); Nucleated Red Blood Cells % 0.1 %/100WBC (0.0-0.8); Platelet Count 220 10^3/uL (150-450); Red Blood Count 4.24 10^6/uL (4.06-5.63); Red Cell Distribution Width 15.2 % (12-17); White Blood Count 5.2 10^3/uL (3.6-10.2)
[2024-03-19] MEDS: NS 0.9% 1000 ml BAG 1,000 ML IV SCH (07:51)
[2024-03-19] MEDS: Magnesium Sulfate 2 gm BAG 2 GM/50 ML BAG IVPB ONE (12:12)
[2024-03-19 13:41] VITALS: BP 140/90
[2024-03-19 14:29] LABS: Calcium 8.5 mg/dL (8.6-10.3); Creatinine, Serum 0.68 mg/dL (0.67-1.17); Potassium 4.1 mmol/L (3.5-5.0); eGFR CKD-EPI 98.1 (>60)
[2024-03-19 15:35] LABS: Magnesium 2.6 mg/dL (1.9-2.7)
[2024-03-19] MEDS: Psyllium PAK PO PRN (16:19)
[2024-03-19 23:00] LABS: Anaplasma phagocytophilum Negative (Negative); B. miyamotoi PCR, B Negative (Negative); Babesia divergens/MO-1 Negative (Negative); Babesia ducani Negative (Negative); Ehrlichia chaffeensis Negative (Negative); Ehrlichia ewingii/canis Negative (Negative); Ehrlichia muris eauclairensis Negative (Negative)
[2024-03-21 08:38] LABS: Norovirus G1 PCR Negative (Negative); Norovirus G2 PCR Negative (Negative)
== END 2024-03-19 16:45 | disposition home or self-care (01) | DRG 392 ==
LOC: ED 08:22 → EDHOLD 08:22 → SUATTDRO 16:36 → MEDTELE 17:01 → SUATTDRO 03-17 16:48
PROVIDERS: ADMIT Internal Medicine; ATTEND Internal Medicine